=== PATIENT | male | born 1990 | race Caucasian/White ===

== ENCOUNTER 2018-02-08 13:17 | Inpatient (IN) | payer OTHER ==
[~2018-02-08] VITALS: Ht 160 cm; Wt 44.7 kg
[~2018-02-08 13:17] MED LIST: CARB1CAP10 PO; CARB400T3 PO; CHOL100010 PO; CLC100 PO; HYD10 PO; KPH250 PO; MRLP17 PO; hydrocortisone IM
[2018-02-08] MEDS ORDERED: ACETAMINOPHEN 650 MG SUPP PR STA (13:52)
[2018-02-08] MEDS ORDERED: SODIUM CHLORIDE 0.9% 500ML 500 ML IV STA (13:52)
[2018-02-08] MEDS ORDERED: SODIUM CHLORIDE 0.9% 1000ML 1,000 ML IV STA (13:52)
--- NOTE | 2018-02-08 14:13 | EMERGENCY ROOM VISIT NOTE ---
History Report prepared by Artie: Khushboo Beckham Under the Supervision of: Dr. Jade Garnett M.D. First contact with patient: 13:33 Chief Complaint: OTHER COMPLAINT Stated Complaint: BLEEDING INTERNAL History of Present Illness The patient is a 27 year old male who presents to the Emergency Room with complaints of worsening hematuria starting 2 weeks ago. Per grandmother, the patient has been passing clots through his catheter. She states that the patient has been complaining of pain in his lower abdomen, diaphoresis, and difficulty urinating. She notes that his Bui catheter was installed 2-3 weeks ago. The patient reported having a bowel movement, which he felt better after. The patient's grandmother denies the patient having a fever and vomiting. Per grandmother, the patient had a small bowel obstruction in the past. Source of History: family (grandmother) Onset: 2 weeks ago Position: other (Penis- urethra) Timing: worsening Modifying Factors (Relieving): defecation Associated Symptoms: + diaphoresis, + abdominal pain, + urinary symptoms, No fevers, No vomiting Review of Systems See HPI for pertinent positives & negatives. A total of 10 systems reviewed and were otherwise negative. Past Medical & Surgical Medical Problems: (1) BLINDNESS/LOW VISION (2) Cerebral palsy (3) History of exploratory laparotomy (4) Scoliosis deformity of spine (5) Seizure disorder Family History Patient reports no known family medical history. Social History Smoking Status: Never Smoker Alcohol Use: none Drug Use: none Marital Status: single Housing Status: lives with family Occupation Status: disabled Current/Historical Medications Scheduled Carbamazepine Extended Release (Tegretol Xr), 400 MG PO BID Carbamazepine Extended Release (Tegretol Xr), 100 MG PO BID Cephalexin Monohydrate (Keflex Susp), 10 ML PO TID Docusate Sodium (Docusate Sodium), 100 MG PO BID Glycopyrrolate (Glycopyrrolate), 1 MG PO BID Hydrocortisone (Cortef), 10 MG PO BID Linaclotide (Linzess), 145 MCG PO DAILY Sulfa/Trimethoprim (Bactrim Ds 800MG/160MG), 1 TAB PO BID Allergies Coded Allergies: No Known Allergies (Unverified , 02/08/18) Physical Exam Vital Signs Date Time Temp Pulse Resp B/P (MAP) Pulse Ox O2 Delivery O2 Flow Rate FiO2 02/08/18 17:23 86 02/08/18 17:19 96 Room Air 02/08/18 15:20 93 18 130/73 96 Room Air 02/08/18 13:45 37.4 02/08/18 13:24 94 20 145/84 94 Room Air Physical Exam Vital signs reviewed. General: Chronically ill-appearing, in no significant distress. HEENT: No scleral icterus, PERRLA, neck supple. Atraumatic. Cardiovascular: Regular rate and rhythm, no extra sounds. Pulmonary: Clear to auscultation bilaterally, normal work of breathing. Abdomen: Soft, nontender, nondistended, positive bowel sounds. Musculoskeletal: Atraumatic, no peripheral edema. : Indwelling Bui catheter draining dark blood tinged urine. Circumcised. Neurologic: Patient awake alert and seems to understand, answering some questions with a head nod. Muscular contractures and atrophy consistent with cerebral palsy. Skin: Warm to touch, dry, no rash Medical Decision & Procedures ER Provider Diagnostic Interpretation: Radiology results as stated below per my review and radiologist interpretation: (ERI/BLAD)RETROPERITON COMP HISTORY: Pain hematuria, LLQ pain, bui COMPARISON: None. FINDINGS: Right kidney: Maximum dimension 10.7 cm. No evidence for hydronephrosis. Normal corticomedullary differentiation and cortical thickness. Left kidney: Maximum dimension 9.2 cm. No evidence for hydronephrosis. Normal corticomedullary differentiation and cortical thickness. Bladder: Bui catheter in good position. IMPRESSION: Normal renal ultrasound. The above report was generated using voice recognition software. It may contain grammatical, syntax or spelling errors. Laboratory Results 02/08/18 14:21 Red Blood Count 4.76, Mean Corpuscular Volume 80.3, Mean Corpuscular Hemoglobin 27.1, Mean Corpuscular Hemoglobin Concent 33.8, Mean Platelet Volume 10.2, Neutrophils (%) (Auto) 70.9, Lymphocytes (%) (Auto) 15.8, Monocytes (%) (Auto) 12.6, Eosinophils (%) (Auto) 0.3, Basophils (%) (Auto) 0.1, Neutrophils # (Auto ) 5.05, Lymphocytes # (Auto) 1.13, Monocytes # (Auto) 0.90, Eosinophils # (Auto ) 0.02, Basophils # (Auto) 0.01 7/29/18 14:21 Test 02/08/18 13:50 02/08/18 14:21 02/08/18 17:02 Urine Color LEIF Urine Appearance CLOUDY (CLEAR) Urine pH 5.5 (4.5-7.5) Urine Specific [place] 1.026 (1.000-1.030) Urine Protein 2+ (NEG) Urine Glucose (UA) NEG (NEG) Urine Ketones NEG (NEG) Urine Occult Blood 3+ (NEG) Urine Nitrite POS (NEG) Urine Bilirubin NEG (NEG) Urine Urobilinogen NEG (NEG) Urine Leukocyte Esterase MODERATE (NEG) Urine WBC (Auto) >30 /hpf (0-5) Urine RBC (Auto) >30 /hpf (0-4) Urine Hyaline Casts (Auto) 5-10 /lpf (0-5) Urine Epithelial Cells (Auto) 0-5 /lpf (0-5) Urine Bacteria (Auto) 2+ (NEG) White Blood Count 7.13 K/uL (4.8-10.8) Red Blood Count 4.76 M/uL (4.7-6.1) Hemoglobin 12.9 g/dL (14.0-18.0) Hematocrit 38.2 % (42-52) Mean Corpuscular Volume 80.3 fL (80-100) Mean Corpuscular Hemoglobin 27.1 pg (25-34) Mean Corpuscular Hemoglobin Concent 33.8 g/dl (32-36) Platelet Count 267 K/uL (130-400) Mean Platelet Volume 10.2 fL (7.4-10.4) Neutrophils (%) (Auto) 70.9 % Lymphocytes (%) (Auto) 15.8 % Monocytes (%) (Auto) 12.6 % Eosinophils (%) (Auto) 0.3 % Basophils (%) (Auto) 0.1 % Neutrophils # (Auto) 5.05 K/uL (1.4-6.5) Lymphocytes # (Auto) 1.13 K/uL (1.2-3.4) Monocytes # (Auto) 0.90 K/uL (0.11-0.59) Eosinophils # (Auto) 0.02 K/uL (0-0.5) Basophils # (Auto) 0.01 K/uL (0-0.2) RDW Standard Deviation 41.7 fL (36.4-46.3) RDW Coefficient of Variation 14.5 % (11.5-14.5) Immature Granulocyte % (Auto) 0.3 % Immature Granulocyte # (Auto) 0.02 K/uL (0.00-0.02) Anion Gap 7.0 mmol/L (3-11) Est Creatinine Clear Calc Drug Dose 113.2 ml/min Estimated GFR () > 150.0 Estimated GFR (Non- 130.0 BUN/Creatinine Ratio 17.3 (10-20) Calcium Level 8.0 mg/dl (8.5-10.1) Total Bilirubin 0.2 mg/dl (0.2-1) Direct Bilirubin 0.1 mg/dl (0-0.2) Aspartate Amino Transf (AST/SGOT) 20 U/L (15-37) Alanine Aminotransferase (ALT/SGPT) 32 U/L (12-78) Alkaline Phosphatase 109 U/L (45-117) Total Protein 7.5 gm/dl (6.4-8.2) Albumin 3.6 gm/dl (3.4-5.0) Carbamazepine (Tegretol) Level 18.4 mcg/ml (4-12) Laboratory results per my review. Medications Administered Medications (Trade) Dose Ordered Sig/[place] Route Start Time Stop Time Status Last Admin Dose Admin Sodium Chloride 500 ml @ 999 mls/hr Q31M STAT IV 02/08/18 13:52 02/08/18 14:22 DC 02/08/18 14:29 999 MLS/HR Sodium Chloride 1,000 ml @ 150 mls/hr Q6H40M STAT IV 02/08/18 13:52 02/08/18 17:18 DC 02/08/18 15:29 150 MLS/HR Ceftriaxone Sodium (Rocephin Inj) 1 gm NOW STAT IV 02/08/18 14:50 02/08/18 14:58 DC 02/08/18 15:21 1 GM Acetaminophen (Tylenol Children'S Susp) 800 mg STK-MED ONCE .ROUTE 02/08/18 15:19 02/08/18 15:20 DC 02/08/18 15:23 650 MG ED Course 0139: Past medical records reviewed. The patient was evaluated in room C4. A complete history and physical examination was performed. 1407: I reviewed past records of the patient. There was a urine specimen done on 01/21/2018 that was positive and a urine culture done on 02/04/2018 that were both positive for E coli. 1622: I reviewed the patient's case with Dr. Ronda Blakely. He will evaluate the patient for further management. 1624: I reevaluated the patient. The patient's grandmother verbally agreed and understood the treatment plan. Medical Decision Differential diagnosis includes urinary tract infection, Bui catheter obstruction, kidney stone, bladder mass, hemorrhage, medication effect, urethral trauma, dehydration, kidney stone, obstruction. This patient was evaluated and appeared to be in no significant distress. IV access was obtained and laboratory work was drawn. The patient's Bui catheter was irrigated to clear without difficulty. Family states the catheter was replaced several days ago. He was started on Bactrim at that time. It appears that the patient still has a UA consistent with significant UTI. Patient is found to be hyponatremic to 127 with a carbamazepine level of 18.4. Ultrasound of the kidneys reveals no evidence of obstruction. Patient's primary caregiver is his mother who is out of town. He is with his aunt and grandmother. Given the findings of hyponatremia and toxic carbamazepine levels with a UTI, the patient will be evaluated by the hospitalist service for further management. Family is aware of the plan and agrees. Medication Reconcilliation Current Medication List: was personally reviewed by me Blood Pressure Screening Patient's blood pressure: Elevated blood pressure Referred to hospitalist. Consults Time Called: 1618 Consulting Physician: Dr. Ronda Blakely. Returned Call: 1622 I reviewed the patient's case with Dr. Ronda Blakely. He will evaluate the patient for further management. Impression Primary Impression: Carbamazepine toxicity Additional Impressions: Hyponatremia UTI (urinary tract infection) due to urinary indwelling catheter Scribe Attestation The scribe's documentation has been prepared under my direction and personally reviewed by me in its entirety. I confirm that the note above accurately reflects all work, treatment, procedures, and medical decision making performed by me. Departure Information Dispostion Being Evaluated By Hospitalist Prescriptions Cephalexin Monohydrate (KEFLEX SUSP) 250 Mg/5 Ml Susp 10 ML PO TID for 7 Days, #210 BTL Prov: Jade Garnett M.D. 02/08/18 Referrals Radha Bacon M.D. (PCP) Patient Instructions My [facility] Problem Qualifiers
[2018-02-08] MEDS ORDERED: DOCU100C31 PO (14:18)
[2018-02-08] MEDS ORDERED: LINA1CAP PO (14:18)
[2018-02-08] MEDS ORDERED: GLYC1TAB19 PO (14:18)
[2018-02-08] MEDS ORDERED: HYD10 PO (14:18)
[2018-02-08] MEDS ORDERED: SULF800T23 PO (14:20)
[2018-02-08 14:46] LABS: BASO % 0.1 %; BASO ABS # 0.01 K/uL (0-0.2); EOS % 0.3 %; EOS ABS # 0.02 K/uL (0-0.5); HEMATOCRIT 38.2 % (42-52); HEMOGLOBIN 12.9 g/dL (14.0-18.0); IG# 0.02 K/uL (0.00-0.02); LYMPH % 15.8 %; LYMPH ABS # 1.13 K/uL (1.2-3.4); MEAN CELL VOLUME 80.3 fL (80-100); MEAN CORPUSCULAR HEMOGLOBIN 27.1 pg (25-34); MEAN CORPUSCULAR HGB CONC 33.8 g/dl (32-36); MEAN PLATELET VOLUME 10.2 fL (7.4-10.4); MONO % 12.6 %; NEUT % 70.9 %; NEUT ABS # 5.05 K/uL (1.4-6.5); PLATELET COUNT 267 K/uL (130-400); RED CELL DISTRIBUTION WIDTH CV 14.5 % (11.5-14.5); RED CELL DISTRIBUTION WIDTH SD 41.7 fL (36.4-46.3); WHITE BLOOD COUNT 7.13 K/uL (4.8-10.8)
[2018-02-08] MEDS ORDERED: ACETAMINOPHEN SOLN 650MG/20.3 ML UDC PO STA (14:50)
[2018-02-08] MEDS ORDERED: CEFTRIAXONE SOD INJ 1 GM ADDVIAL IV STA (14:50)
[2018-02-08 15:10] LABS: ALBUMIN 3.6 gm/dl (3.4-5.0); ALKALINE PHOSPHATASE 109 U/L (45-117); ALT/SGPT 32 U/L (12-78); AST/SGOT 20 U/L (15-37); BLOOD UREA NITROGEN 12 mg/dl (7-18); CARBON DIOXIDE 23 mmol/L (21-32); CREATININE 0.68 mg/dl (0.60-1.40); GLUCOSE 91 mg/dl (70-99); POTASSIUM 3.9 mmol/L (3.5-5.1); SODIUM 127 mmol/L (136-145); TOTAL PROTEIN 7.5 gm/dl (6.4-8.2)
[2018-02-08] MEDS ORDERED: ACETAMINOPHEN SUSP 160 MG/5 ML UDC ONE (15:19)
--- NOTE | 2018-02-08 16:01 | DIAGNOSTIC IMAGING REPORT ---
(ERI/BLAD)RETROPERITON COMP HISTORY: Pain hematuria, LLQ pain, bui COMPARISON: None. FINDINGS: Right kidney: Maximum dimension 10.7 cm. No evidence for hydronephrosis. Normal corticomedullary differentiation and cortical thickness. Left kidney: Maximum dimension 9.2 cm. No evidence for hydronephrosis. Normal corticomedullary differentiation and cortical thickness. Bladder: Bui catheter in good position. IMPRESSION: Normal renal ultrasound. The above report was generated using voice recognition software. It may contain grammatical, syntax or spelling errors. Electronically signed by: Tawanda Perera M.D. 02/08/2018 4:00 PM Dictated Date/Time: 02/08/2018 3:59 PM
[2018-02-08] MEDS ORDERED: CEPH500C PO (16:03)
[2018-02-08] MEDS ORDERED: KFLS250100 PO (16:08)
[2018-02-08 17:19] VITALS: O2SAT 96; Ht 160 cm; Wt 44.7 kg
--- NOTE | 2018-02-08 17:24 | History and Physical ---
History & Physical Date & Time of Service: Feb 08, 2018 at 17:14 Chief Complaint: Bleeding Internal Primary Care Physician: Radha Bacon M.D. History of Present Illness Source: family, clinic records 27-year-old male with history of cerebral palsy, spastic quadriplegia, epilepsy , panhypopituitarism Presenting with lower abdominal pain. History obtained from patient's grandmother at the bedside as patient is nonverbal. Patient had a Bui catheter insertion recently as he was having retention and incontinence. Urine cultures from February 04, 2018 also showed E. coli, and is now on his Bactrim day #3. According to the grandmother,, patient was noted to have no abdominal pain earlier today, no nausea or vomiting, no fever chills, but is noted to have sweats at night. Occasional mild hematuria and blood clots also seen in his Bui catheter. He was then brought to the ER for evaluation. Labs drawn at the ER showed UA positive for UTI, elevated carbamazepine level of 18, hyponatremia of 127. Patient was given IV ceftriaxone, and start with IV normal saline. On exam, the patient is awake and alert, nonverbal, but able to make gestures, smiling, not in distress. When asked increasing pain, the patient shakes his head. No other symptoms according to the grandmother. Past Medical/Surgical History Medical Problems: (1) BLINDNESS/LOW VISION (2) Cerebral palsy (3) Dehydration (4) History of exploratory laparotomy (5) Hypopituitarism (6) Intestinal obstruction (7) Partial obstruction of small bowel (8) Scoliosis deformity of spine (9) Seizure disorder (10) small bowel obstruction Family History Patient reports no known family medical history. Social History Smoking Status: Never Smoker Drug Use: none Marital Status: single Housing status: lives with family Occupational Status: disabled Immunizations History of Influenza Vaccine: Yes Influenza Vaccine Date: Jun 04, 2013 History of Tetanus Vaccine?: UNK History of Pneumococcal: No History of Hepatitis B Vaccine: Unknown Allergies Coded Allergies: No Known Allergies (Unverified , 02/08/18) Home Medications Scheduled Carbamazepine Extended Release (Tegretol Xr), 400 MG PO BID Carbamazepine Extended Release (Tegretol Xr), 100 MG PO BID Cephalexin Monohydrate (Keflex Susp), 10 ML PO TID Docusate Sodium (Docusate Sodium), 100 MG PO BID Glycopyrrolate (Glycopyrrolate), 1 MG PO BID Hydrocortisone (Cortef), 10 MG PO BID Linaclotide (Linzess), 145 MCG PO DAILY Sulfa/Trimethoprim (Bactrim Ds 800MG/160MG), 1 TAB PO BID Review of Systems Constitutional- no fever; no weight loss Eyes- no acute visual changes ENT- no sinus drainage; no pharyngitis Pulmonary- no cough, no wheezing, no shortness of breath Cardiac- no chest pain, no palpitations, no orthopnea, no dependent edema GI-positive for constipation -positive as noted above Musculoskeletal- no arthralgias, no myalgias Derm- no rashes, no new skin lesions, no changing skin lesions Hematologic- no unusual bruising, no unusual bleeding Lymphatics- no adenopathy Endocrine- no polyuria or polydipsia; no heat or cold intolerance Neuro- no headaches, no focal neurologic symptoms Psych- no anxiety, no depression Physical Exam Vital Signs Date Time Temp Pulse Resp B/P (MAP) Pulse Ox O2 Delivery O2 Flow Rate FiO2 02/08/18 15:20 93 18 130/73 96 Room Air 02/08/18 13:45 37.4 02/08/18 13:24 94 20 145/84 94 Room Air General Appearance: no apparent distress, + thin Head: normocephalic, atraumatic Eyes: normal inspection, PERRL, EOMI, sclerae normal ENT: normal ENT inspection, hearing grossly normal, pharynx normal Neck: supple, no adenopathy, thyroid normal, no JVD, trachea midline Respiratory/Chest: chest non-tender, lungs clear, normal breath sounds, no respiratory distress, no accessory muscle use Cardiovascular: regular rate, rhythm, no edema, no JVD, no murmur, normal peripheral pulses Abdomen/GI: normal bowel sounds, non tender, soft Back: normal inspection, no CVA tenderness Extremities/Musculoskelatal: + pertinent finding (Positive atrophy of the legs with Flex posturing) Neurologic/Psych: line camera operator II-XII nml as tested, no motor/sensory deficits, alert, oriented x 3 Skin: normal color, warm/dry, no rash Lymphatic: no adenopathy Diagnostics Laboratory Results Results Past 24 Hours Test 02/08/18 13:50 02/08/18 14:21 02/08/18 17:02 Range/Units Urine Color LEIF Urine Appearance CLOUDY CLEAR Urine pH 5.5 4.5-7.5 Urine Specific [place] 1.026 1.000-1.030 Urine Protein 2+ NEG Urine Glucose (UA) NEG NEG Urine Ketones NEG NEG Urine Occult Blood 3+ NEG Urine Nitrite POS NEG Urine Bilirubin NEG NEG Urine Urobilinogen NEG NEG Urine Leukocyte Esterase MODERATE NEG Urine WBC (Auto) >30 0-5 /hpf Urine RBC (Auto) >30 0-4 /hpf Urine Hyaline Casts (Auto) 5-10 0-5 /lpf Urine Epithelial Cells (Auto) 0-5 0-5 /lpf Urine Bacteria (Auto) 2+ NEG White Blood Count 7.13 4.8-10.8 K/uL Red Blood Count 4.76 4.7-6.1 M/uL Hemoglobin 12.9 14.0-18.0 g/dL Hematocrit 38.2 42-52 % Mean Corpuscular Volume 80.3 80-100 fL Mean Corpuscular Hemoglobin 27.1 25-34 pg Mean Corpuscular Hemoglobin Concent 33.8 32-36 g/dl Platelet Count 267 130-400 K/uL Mean Platelet Volume 10.2 7.4-10.4 fL Neutrophils (%) (Auto) 70.9 % Lymphocytes (%) (Auto) 15.8 % Monocytes (%) (Auto) 12.6 % Eosinophils (%) (Auto) 0.3 % Basophils (%) (Auto) 0.1 % Neutrophils # (Auto) 5.05 1.4-6.5 K/uL Lymphocytes # (Auto) 1.13 1.2-3.4 K/uL Monocytes # (Auto) 0.90 0.11-0.59 K/uL Eosinophils # (Auto) 0.02 0-0.5 K/uL Basophils # (Auto) 0.01 0-0.2 K/uL RDW Standard Deviation 41.7 36.4-46.3 fL RDW Coefficient of Variation 14.5 11.5-14.5 % Immature Granulocyte % (Auto) 0.3 % Immature Granulocyte # (Auto) 0.02 0.00-0.02 K/uL Sodium Level 127 136-145 mmol/L Potassium Level 3.9 3.5-5.1 mmol/L Chloride Level 97 98-107 mmol/L Carbon Dioxide Level 23 21-32 mmol/L Anion Gap 7.0 3-11 mmol/L Blood Urea Nitrogen 12 7-18 mg/dl Creatinine 0.68 0.60-1.40 mg/dl Est Creatinine Clear Calc Drug Dose 113.2 ml/min Estimated GFR () > 150.0 Estimated GFR (Non- 130.0 BUN/Creatinine Ratio 17.3 10-20 Random Glucose 91 70-99 mg/dl Calcium Level 8.0 8.5-10.1 mg/dl Total Bilirubin 0.2 0.2-1 mg/dl Direct Bilirubin 0.1 0-0.2 mg/dl Aspartate Amino Transf (AST/SGOT) 20 15-37 U/L Alanine Aminotransferase (ALT/SGPT) 32 12-78 U/L Alkaline Phosphatase 109 45-117 U/L Total Protein 7.5 6.4-8.2 gm/dl Albumin 3.6 3.4-5.0 gm/dl Carbamazepine (Tegretol) Level 18.4 4-12 mcg/ml Microbiology Results 02/08/18 Urine Culture, Received Pending Diagnostic Radiology (ERI/BLAD)RETROPERITON COMP HISTORY: Pain hematuria, LLQ pain, bui COMPARISON: None. FINDINGS: Right kidney: Maximum dimension 10.7 cm. No evidence for hydronephrosis. Normal corticomedullary differentiation and cortical thickness. Left kidney: Maximum dimension 9.2 cm. No evidence for hydronephrosis. Normal corticomedullary differentiation and cortical thickness. Bladder: Bui catheter in good position. IMPRESSION: Normal renal ultrasound. The above report was generated using voice recognition software. It may contain grammatical, syntax or spelling errors. Electronically signed by: Tawanda Perera M.D. 02/08/2018 4:00 PM Impression Assessment and Plan 27-year-old male with history of cerebral palsy, spastic quadriplegia, epilepsy , panhypopituitarism Presenting with lower abdominal pain. LOWER ABDOMINAL PAIN Possible differentials: Secondary to UTI Continue ceftriaxone IV Secondary to Bui catheter We will consult urology Secondary to constipation versus colitis Obtain CT abdomen and pelvis HEMATURIA, in the setting of Bui catheter, E. coli UTI No active hematuria per inspection of the Bui catheter back We will continue to monitor HYPONATREMIA Possibly secondary to carbamazepine toxicity Patient appears to be euvolemic Obtain serum osmolality, urine sodium and osmolality Consult nephrology ELEVATED CARBAMAZEPINE LEVEL Hold carbamazepine Consult neurology CEREBRAL PALSY Mental status at baseline PANHYPOPITUITARISM Patient not septic Continue hydrocortisone p.o. 10 mg p.o. twice a day EPILEPSY Management of carbamazepine as noted above Neurology consulted DVT prophylaxis SCDs Avoiding anticoagulation due to hematuria episodes CODE STATUS Full code according to grandmother Disposition Anticipate discharge to home when medically stable Discussed the case at length with patient's grandmother and she is agreeable and comfortable with plan of care Resuscitation Status VTE Prophylaxis Will order VTE Prophylaxis: Yes Reason for no VTE drug order: Contraindicated
--- NOTE | 2018-02-08 18:04 | DIAGNOSTIC IMAGING REPORT ---
ABD/PELVIS NO IV OR ORAL CONT CT DOSE: 304.24 mGy.cm HISTORY: Pain lower abdominal pain TECHNIQUE: Multiaxial CT images of the abdomen and pelvis were performed without contrast. A dose lowering technique was utilized adhering to the principles of ALARA. COMPARISON STUDY: 06/28/2013 FINDINGS: Similar study is compared to the prior exam. Lines consistent with distal small bowel obstruction. Multiple mildly distended fluid-filled loops of small bowel. Colon shows no evidence for distention. There is a Sumner catheter within the bladder. No significant abdominal or pelvic free fluid within the limitations of an unenhanced exam. Unchanging postoperative stabilization procedure to the thoracolumbar spine. Lung bases remain clear. There is a small hiatal hernia. IMPRESSION: 1. Findings consistent with a mid to distal small bowel obstruction. 2. Distal small bowel is decompressed as is the colon. 3. Appearance is in general similar compared to the prior study although the degree of bowel distention is less prominent on the current exam. 4. As discussed previously, the possibility of adhesions is considered. The above report was generated using voice recognition software. It may contain grammatical, syntax or spelling errors. Electronically signed by: Tawanda Perera M.D. 02/08/2018 6:03 PM Dictated Date/Time: 02/08/2018 5:53 PM
[2018-02-08 18:08] VITALS: O2SAT 97
[2018-02-08 18:16] VITALS: BP 112/70; PULSE 90; TEMP 36.7; O2SAT 100
--- NOTE | 2018-02-08 18:48 | Progress Note ---
Progress Note Date of Service Feb 08, 2018. Progress Note Attending addendum CT abdomen pelvis reviewed: Mid to distal bowel obstruction Please patient n.p.o. and start D5 NSS Also start stress dose hydrocortisone IV General surgery consulted Serum osmolality low Monitor sodium D5 NS discussed the case with patient's mother at bedside At length She is agreeable and comfortable with the plan of care Anil LUCERO
[2018-02-08 19:52] VITALS: BP 130/73; PULSE 83; TEMP 36.8; O2SAT 98
--- NOTE | 2018-02-08 20:14 | Urology Consultation ---
History General Date of Service: Feb 08, 2018. Chief Complaint: hematuria Primary Care Physician: Radha Bacon M.D. Pt seen a urologist before?: Yes If yes, why?: urinary retention History of Present Illness I am asked by dr Reyes to evaluate and treat patient for hematuria. He is admitted with abd pain. He was found on lab testing to be hyponatremic and supra-therapeutic on his seizure medicine. Patient was diagnosed with urinary retention with overflow incontinence 3 weeks ago. he was started on clean intermittent catheterization by family at home 2-3 times per day. the mid week the family had difficulty getting the catheter int. We placed an indwelling Bui for the first time 3 days ago. Urine was cloudy at the time so urine was sent for culture. He was started in Bactrim for the e coli uti Friday evening. I have never seen hematuria in the patient but it is quite common in catheterized individuals. Imaging Imaging: CT, [facility] Laboratory Results Past 24 Hours Test 02/08/18 00:00 02/08/18 13:50 02/08/18 14:21 02/08/18 19:39 Range/Units Urine Osmolality 642 500-800 mOms/kg Urine Random Sodium 102 mEq/L Urine Color LEIF Urine Appearance CLOUDY CLEAR Urine pH 5.5 4.5-7.5 Urine Specific [employer] M[employer] 1.026 1.000-1.030 Urine Protein 2+ NEG Urine Glucose (UA) NEG NEG Urine Ketones NEG NEG Urine Occult Blood 3+ NEG Urine Nitrite POS NEG Urine Bilirubin NEG NEG Urine Urobilinogen NEG NEG Urine Leukocyte Esterase MODERATE NEG Urine WBC (Auto) >30 0-5 /hpf Urine RBC (Auto) >30 0-4 /hpf Urine Hyaline Casts (Auto) 5-10 0-5 /lpf Urine Epithelial Cells (Auto) 0-5 0-5 /lpf Urine Bacteria (Auto) 2+ NEG White Blood Count 7.13 4.8-10.8 K/uL Red Blood Count 4.76 4.7-6.1 M/uL Hemoglobin 12.9 14.0-18.0 g/dL Hematocrit 38.2 42-52 % Mean Corpuscular Volume 80.3 80-100 fL Mean Corpuscular Hemoglobin 27.1 25-34 pg Mean Corpuscular Hemoglobin Concent 33.8 32-36 g/dl Platelet Count 267 130-400 K/uL Mean Platelet Volume 10.2 7.4-10.4 fL Neutrophils (%) (Auto) 70.9 % Lymphocytes (%) (Auto) 15.8 % Monocytes (%) (Auto) 12.6 % Eosinophils (%) (Auto) 0.3 % Basophils (%) (Auto) 0.1 % Neutrophils # (Auto) 5.05 1.4-6.5 K/uL Lymphocytes # (Auto) 1.13 1.2-3.4 K/uL Monocytes # (Auto) 0.90 0.11-0.59 K/uL Eosinophils # (Auto) 0.02 0-0.5 K/uL Basophils # (Auto) 0.01 0-0.2 K/uL RDW Standard Deviation 41.7 36.4-46.3 fL RDW Coefficient of Variation 14.5 11.5-14.5 % Immature Granulocyte % (Auto) 0.3 % Immature Granulocyte # (Auto) 0.02 0.00-0.02 K/uL Sodium Level 127 131 136-145 mmol/L Potassium Level 3.9 3.5-5.1 mmol/L Chloride Level 97 98-107 mmol/L Carbon Dioxide Level 23 21-32 mmol/L Anion Gap 7.0 3-11 mmol/L Blood Urea Nitrogen 12 7-18 mg/dl Creatinine 0.68 0.60-1.40 mg/dl Est Creatinine Clear Calc Drug Dose 113.2 ml/min Estimated GFR () > 150.0 Estimated GFR (Non- 130.0 BUN/Creatinine Ratio 17.3 10-20 Random Glucose 91 70-99 mg/dl Osmolality 264 280-300 mOsm/kg Calcium Level 8.0 8.5-10.1 mg/dl Total Bilirubin 0.2 0.2-1 mg/dl Direct Bilirubin 0.1 0-0.2 mg/dl Aspartate Amino Transf (AST/SGOT) 20 15-37 U/L Alanine Aminotransferase (ALT/SGPT) 32 12-78 U/L Alkaline Phosphatase 109 45-117 U/L Total Protein 7.5 6.4-8.2 gm/dl Albumin 3.6 3.4-5.0 gm/dl Carbamazepine (Tegretol) Level 18.4 4-12 mcg/ml Microbiology Results 02/08/18 Urine Culture, Received Pending Labs were reviewed and are within normal limits unless listed below. Labs are available in the chart and at [facility] Problem List Medical Problems: (1) Carbamazepine toxicity Status: Acute (2) Hyponatremia Status: Acute (3) UTI (urinary tract infection) due to urinary indwelling catheter Status: Acute Past History other Family History Patient reports no known family medical history. Social History Hx Tobacco Use In Past Year?: No Smoking: non-smoker Alcohol: never Drug use: none Marital status: single Housing status: lives with family Occupation status: disabled Immunizations History of Influenza Vaccine: Yes Influenza Vaccine Date: Jun 04, 2013 History of Tetanus Vaccine?: UNK History of Pneumococcal: No History of Hepatitis B Vaccine: Unknown History of MDRO No Allergies Coded Allergies: No Known Allergies (Unverified , 02/08/18) Medications Home Medications: Home Meds and Scripts Medications Dose Route/Sig Max Daily Dose Days Date Category Dose Instructions Keflex Susp (Cephalexin Monohydrate) 250 Mg/5 Ml Susp 10 Ml PO TID 7 02/08/18 Rx Bactrim Ds 800MG/160MG (Trimethoprim/Sulfamethoxazole) Tab 1 Tab PO BID 02/08/18 Reported started 02/06 for 3 days Docusate Sodium 100 Mg Cap 100 Mg PO BID 7 02/08/18 Reported Glycopyrrolate 1 Mg Tab 1 Mg PO BID 02/08/18 Reported Linzess (Linaclotide) 145 Mcg Cap 145 Mcg PO DAILY 02/08/18 Reported Cortef (Hydrocortisone) 10 Mg Tab 10 Mg PO BID 02/08/18 Reported Tegretol Xr (Carbamazepine) 100 Mg Tabcr 100 Mg PO BID 06/28/13 Reported Tegretol Xr (Carbamazepine) 400 Mg Tabcr 400 Mg PO BID 12/17/10 Reported Inpatient Medications: Current Inpatient Medications Medications (Trade) Dose Ordered Sig/[place] Route Start Time Stop Time Status Last Admin Dose Admin Ceftriaxone Sodium 1 gm/ Dextrose 50 ml @ 100 mls/hr Q24H IV 02/09/18 15:00 02/19/18 14:59 UNV Glycopyrrolate (Robinul Tab) 1 mg BID PO 02/08/18 21:00 03/10/18 20:59 UNV Hydrocortisone (Cortef Tab) 10 mg BID PO 02/08/18 21:00 03/10/18 20:59 UNV Hydrocortisone Sodium Succinate 100 mg/Syringe 2 ml @ 4 mls/min NOW ONCE IV 02/08/18 18:45 02/08/18 18:46 UNV Hydrocortisone Sodium Succinate 50 mg/Syringe 1 ml @ 4 mls/min Q6H IV 02/09/18 01:00 03/11/18 00:59 UNV Potassium Chloride/Dextrose/ Sod Cl 1,000 ml @ 75 mls/hr [id number] IV 02/08/18 18:45 03/10/18 18:44 UNV Review of Systems Review of Systems Constitutional: No fever, No chills Endocrine: + tired/sluggish Gastrointestinal: + abdominal pain, + constipation Male : + urinary retention, + infections, + kidney stones Physical Exam Vital Signs: Vital Signs Past 12 Hours Date Time Temp Pulse Resp B/P (MAP) Pulse Ox O2 Delivery O2 Flow Rate FiO2 02/08/18 19:52 36.8 83 18 130/73 (92) 98 Room Air 02/08/18 18:16 36.7 90 16 112/70 (84) 100 Room Air 02/08/18 18:08 87 20 128/70 97 02/08/18 17:23 86 02/08/18 17:19 96 Room Air 02/08/18 15:20 93 18 130/73 96 Room Air 02/08/18 13:45 37.4 02/08/18 13:24 94 20 145/84 94 Room Air Physical Exam: General Appearance: WD/WN, no apparent distress, + thin Eyes: bilateral eyes normal inspection ENT: hearing grossly normal Respiratory/Chest: no respiratory distress, no accessory muscle use Genitourinary - Male: Penis: normal penis Urethral Meatus: normal urethral meatus, pertinent finding (bui in place draining yellow urine no blood noted) Neurologic/Psychiatric: alert Assessment & Plan Assessment & Plan intermittent hematuria imaging looks fine. labs do not show any concerning anemia he does have 2 small left non obstructing kidney stones seen on ct scan. no intervention recommended at this time the catheter and the uti make it likely the source is inflammatory in nature. Keep bui catheter in place.
[2018-02-08] MEDS: GLYCOPYRROLATE 1 MG TAB PO SCH (21:00)
[2018-02-08] MEDS ORDERED: HYDROCORTISONE IV 100 MG in SYRINGE 0 ML IV ONE (21:00)
[2018-02-08] MEDS ORDERED: D5NSS + 20MEQ KCL 1,000 ML IV SCH (21:00)
[2018-02-08] MEDS ORDERED: HYDROCORTISONE 10 MG TAB PO SCH (21:00)
[2018-02-08 23:41] VITALS: BP 115/71; PULSE 77; TEMP 36.6; O2SAT 96
[2018-02-09] MEDS: HYDROCORTISONE IV 50 MG in SYRINGE 0 ML IV SCH ×4 (02:02→19:36)
[2018-02-09 04:13] VITALS: BP 94/59; PULSE 74; TEMP 36.6; O2SAT 99
[2018-02-09 07:11] VITALS: BP 105/68; PULSE 81; TEMP 36.6; O2SAT 100
[2018-02-09] MEDS: GLYCOPYRROLATE 1 MG TAB PO SCH ×2 (08:40→19:35)
[2018-02-09 08:54] LABS: BASO % 0.3 %; BASO ABS # 0.01 K/uL (0-0.2); HEMATOCRIT 35.1 % (42-52); HEMOGLOBIN 11.7 g/dL (14.0-18.0); LYMPH % 17.9 %; LYMPH ABS # 0.59 K/uL (1.2-3.4); MEAN CELL VOLUME 81.1 fL (80-100); MEAN CORPUSCULAR HGB CONC 33.3 g/dl (32-36); MEAN PLATELET VOLUME 10.7 fL (7.4-10.4); MONO % 6.1 %; NEUT % 75.7 %; PLATELET COUNT 226 K/uL (130-400); RED CELL DISTRIBUTION WIDTH CV 14.6 % (11.5-14.5); RED CELL DISTRIBUTION WIDTH SD 43.2 fL (36.4-46.3)
[2018-02-09 09:02] LABS: BLOOD UREA NITROGEN 6 mg/dl (7-18); CALCIUM 8.3 mg/dl (8.5-10.1); CARBON DIOXIDE 27 mmol/L (21-32); CREATININE 0.66 mg/dl (0.60-1.40); GLUCOSE 123 mg/dl (70-99); POTASSIUM 3.8 mmol/L (3.5-5.1); SODIUM 141 mmol/L (136-145)
--- NOTE | 2018-02-09 09:14 | Progress Note ---
Medicine Progress Note Date & Time of Visit: Feb 09, 2018 at 09:05. Subjective seen resting in bed, alert, in good spirits mother at bedside states he looks improved had small BMs overnight, (+ )flatus, no nausea/vomiting mother reports patient had 2 seizures overnight- 10 sec, stares and moans- usually happens at home 3x a week patient gestures to answer questions- feels fine, no abdominal pain\ no other symptoms Objective Last 8 Hrs Date Time Temp Pulse Resp B/P (MAP) Pulse Ox O2 Delivery O2 Flow Rate FiO2 02/09/18 07:11 36.6 81 16 105/68 (80) 100 Room Air 02/09/18 04:13 36.6 74 16 94/59 (71) 99 Room Air Physical Exam: General-alert, not in distress, non verbal, gestures Eyes- anicteric ENT- oropharynx clear Neck- supple, no JVD Lungs- clear to auscultation Heart- regular rhythm; no murmur, normal rate Abdomen- normal bowel sounds, soft,non distended, nontender Extremities- no pretibial edema, no calf tenderness Neuro- alert, oriented x 3; no gross focal deficits Skin- warm & dry Laboratory Results: Last 24 Hours Test 02/08/18 13:50 02/08/18 14:21 02/08/18 19:39 02/09/18 00:08 Urine Color LEIF Urine Appearance CLOUDY Urine pH 5.5 Urine Specific [place] 1.026 Urine Protein 2+ Urine Glucose (UA) NEG Urine Ketones NEG Urine Occult Blood 3+ Urine Nitrite POS Urine Bilirubin NEG Urine Urobilinogen NEG Urine Leukocyte Esterase MODERATE Urine WBC (Auto) >30 /hpf Urine RBC (Auto) >30 /hpf Urine Hyaline Casts (Auto) 5-10 /lpf Urine Epithelial Cells (Auto) 0-5 /lpf Urine Bacteria (Auto) 2+ White Blood Count 7.13 K/uL Red Blood Count 4.76 M/uL Hemoglobin 12.9 g/dL Hematocrit 38.2 % Mean Corpuscular Volume 80.3 fL Mean Corpuscular Hemoglobin 27.1 pg Mean Corpuscular Hemoglobin Concent 33.8 g/dl Platelet Count 267 K/uL Mean Platelet Volume 10.2 fL Neutrophils (%) (Auto) 70.9 % Lymphocytes (%) (Auto) 15.8 % Monocytes (%) (Auto) 12.6 % Eosinophils (%) (Auto) 0.3 % Basophils (%) (Auto) 0.1 % Neutrophils # (Auto) 5.05 K/uL Lymphocytes # (Auto) 1.13 K/uL Monocytes # (Auto) 0.90 K/uL Eosinophils # (Auto) 0.02 K/uL Basophils # (Auto) 0.01 K/uL RDW Standard Deviation 41.7 fL RDW Coefficient of Variation 14.5 % Immature Granulocyte % (Auto) 0.3 % Immature Granulocyte # (Auto) 0.02 K/uL Sodium Level 127 mmol/L 131 mmol/L 132 mmol/L Potassium Level 3.9 mmol/L Chloride Level 97 mmol/L Carbon Dioxide Level 23 mmol/L Anion Gap 7.0 mmol/L Blood Urea Nitrogen 12 mg/dl Creatinine 0.68 mg/dl Est Creatinine Clear Calc Drug Dose 113.2 ml/min Estimated GFR () > 150.0 Estimated GFR (Non- 130.0 BUN/Creatinine Ratio 17.3 Random Glucose 91 mg/dl Osmolality 264 mOsm/kg Calcium Level 8.0 mg/dl Total Bilirubin 0.2 mg/dl Direct Bilirubin 0.1 mg/dl Aspartate Amino Transf (AST/SGOT) 20 U/L Alanine Aminotransferase (ALT/SGPT) 32 U/L Alkaline Phosphatase 109 U/L Total Protein 7.5 gm/dl Albumin 3.6 gm/dl Carbamazepine (Tegretol) Level 18.4 mcg/ml Test 02/09/18 04:03 02/09/18 07:48 White Blood Count 3.30 K/uL Red Blood Count 4.33 M/uL Hemoglobin 11.7 g/dL Hematocrit 35.1 % Mean Corpuscular Volume 81.1 fL Mean Corpuscular Hemoglobin 27.0 pg Mean Corpuscular Hemoglobin Concent 33.3 g/dl Platelet Count 226 K/uL Mean Platelet Volume 10.7 fL Neutrophils (%) (Auto) 75.7 % Lymphocytes (%) (Auto) 17.9 % Monocytes (%) (Auto) 6.1 % Eosinophils (%) (Auto) 0.0 % Basophils (%) (Auto) 0.3 % Neutrophils # (Auto) 2.50 K/uL Lymphocytes # (Auto) 0.59 K/uL Monocytes # (Auto) 0.20 K/uL Eosinophils # (Auto) 0.00 K/uL Basophils # (Auto) 0.01 K/uL RDW Standard Deviation 43.2 fL RDW Coefficient of Variation 14.6 % Immature Granulocyte % (Auto) 0.0 % Immature Granulocyte # (Auto) 0.00 K/uL Sodium Level 136 mmol/L 141 mmol/L Carbamazepine (Tegretol) Level 10.6 mcg/ml Potassium Level 3.8 mmol/L Chloride Level 108 mmol/L Carbon Dioxide Level 27 mmol/L Anion Gap 6.0 mmol/L Blood Urea Nitrogen 6 mg/dl Creatinine 0.66 mg/dl Est Creatinine Clear Calc Drug Dose 109.1 ml/min Estimated GFR () > 150.0 Estimated GFR (Non- 131.6 BUN/Creatinine Ratio 8.6 Random Glucose 123 mg/dl Calcium Level 8.3 mg/dl Date/Time Source Procedure Growth Status 02/08/18 13:50 Urine,Catheterized Urine Culture - Preliminary Gram Negative Bacilli Resulted Assessment & Plan 27-year-old male with history of cerebral palsy, spastic quadriplegia, epilepsy , panhypopituitarism Presenting with lower abdominal pain. LOWER ABDOMINAL PAIN secondary to: Small Bowel Obstruction on NPO Gen Surg Consulted seems to be resolving will discuss with Gen Surg re: advancing his diet Secondary to UTI Urine culture gram negative bacilli Continue ceftriaxone IV Secondary to Sumner catheter Urology consulted, maintain Sumner outpatient ff up HEMATURIA, in the setting of Sumner catheter, E. coli UTI, small L Kidney stones No active hematuria per inspection of the Sumner catheter back Urology consulted, maintain Sumner, treat UTI HYPONATREMIA Possibly secondary to carbamazepine toxicity Patient appears to be euvolemic serum Osm low Urine Osm and Na noted - Na improved to 126 to 141 ELEVATED CARBAMAZEPINE LEVEL Held carbamazepine, level normal this morning Neurology consulted CEREBRAL PALSY Mental status at baseline PANHYPOPITUITARISM on stress dose hydrocortisone 50mg IV q6h, then taper to 25mg q6h, then cortef 20mg TID, 20mg BID, then 02/05, then 04/22 EPILEPSY Management of carbamazepine as noted above Neurology consulted DVT prophylaxis SCDs Avoiding anticoagulation due to hematuria episodes re-evaluated CODE STATUS Full code according to grandmother Disposition Anticipate discharge to home when medically stable Discussed the case at length with patient's mother and she is agreeable and comfortable with plan of care Current Inpatient Medications: Current Inpatient Medications Medications (Trade) Dose Ordered Sig/[place] Route Start Time Stop Time Status Last Admin Dose Admin Ceftriaxone Sodium 1 gm/ Dextrose 50 ml @ 100 mls/hr Q24H IV 02/09/18 14:00 02/19/18 13:59 Glycopyrrolate (Robinul Tab) 1 mg BID PO 02/08/18 21:00 03/10/18 20:59 Hydrocortisone (Cortef Tab) 10 mg BID PO 02/08/18 21:00 03/10/18 20:59 Future Hold Hydrocortisone Sodium Succinate 50 mg/Syringe 1 ml @ 4 mls/min Q6H IV 02/09/18 02:00 03/11/18 01:59 02/09/18 08:40 4 MLS/MIN
--- NOTE | 2018-02-09 14:13 | Neurology Consultation ---
Neurology Consultation Date of Consultation: Feb 09, 2018. Attending Physician: Jeremy Reyes MD Primary Care Physician: Radha Bacon M.D. Reason for Consultation: elevated carbamazepine level /UTI History of Present Illness Source: patient, parent Yony is a 27 year old male with history of cerebral palsy, spastic quadriplegia, epilepsy, panhypopituitarism. He presented with lower abdominal pain. He had a Sumner catheter insertion recently as he was having retention and incontinence. Urine cultures from February 04, 2018 also showed E. coli, and was on bactrim for 3 days. And had some sweats at night occasional mild hematuria and blood clots also seen in his Sumner catheter. Labs were positive for UTI, elevated carbamazepine level of 18, hyponatremia of 127. His mom states he is anxious to start eating again but the bowel obstruction he is NPO. He is currently on IV fluids and ceftriaxone and stress steroids. She also states he has been having some right sided head turning and some verbal break through seizures. denies falls, N, V. SOB. Past Medical/Surgical History Medical Problems: (1) Carbamazepine toxicity Status: Acute (2) Hyponatremia Status: Acute (3) UTI (urinary tract infection) due to urinary indwelling catheter Status: Acute Social History Smoking Status: Never smoker Smokeless Tobacco Use: No Alcohol Use: none Drug Use: none Marital Status: single Housing Status: lives with family Occupation Status: disabled Allergies Coded Allergies: No Known Allergies (Unverified , 02/08/18) Current Inpatient Medications Current Inpatient Medications Medications (Trade) Dose Ordered Sig/[place] Route Start Time Stop Time Status Last Admin Dose Admin Ceftriaxone Sodium 1 gm/ Dextrose 50 ml @ 100 mls/hr Q24H IV 02/09/18 14:00 02/19/18 13:59 Glycopyrrolate (Robinul Tab) 1 mg BID PO 02/08/18 21:00 03/10/18 20:59 Hydrocortisone (Cortef Tab) 10 mg BID PO 02/08/18 21:00 03/10/18 20:59 Future Hold Hydrocortisone Sodium Succinate 50 mg/Syringe 1 ml @ 4 mls/min Q6H IV 02/09/18 02:00 03/11/18 01:59 02/09/18 08:40 4 MLS/MIN Dextrose 1,000 ml @ 200 mls/hr Q5H IV 02/09/18 13:45 03/11/18 13:44 Physical Exam Vital Signs (Past 24 Hrs): Date Time Temp Pulse Resp B/P (MAP) Pulse Ox O2 Delivery O2 Flow Rate FiO2 02/09/18 08:00 Room Air 02/09/18 07:11 36.6 81 16 105/68 (80) 100 Room Air 02/09/18 04:13 36.6 74 16 94/59 (71) 99 Room Air 02/08/18 23:41 36.6 77 15 115/71 (86) 96 Room Air 02/08/18 20:00 Room Air 02/08/18 19:52 36.8 83 18 130/73 (92) 98 Room Air 02/08/18 18:16 36.7 90 16 112/70 (84) 100 Room Air 02/08/18 18:08 87 20 128/70 97 02/08/18 17:23 86 02/08/18 17:19 96 Room Air 02/08/18 15:20 93 18 130/73 96 Room Air Physical Exam: Constitutional: appearance nourished sitting in wheelchair with contractured positioning of arms and legs Ears, Nose, Mouth and Throat: mucous membranes moist, no injection and skin normal, eyes normal Cardiovascular: normal S-1 and S-2 and regular rate and rhythm Respiratory: clear to auscultation (CTA) and no rales, rhonchi or wheeze Musculoskeletal: no peripheral edema and bilateral atrophy in muscles Skin: no stigmata of neurocutaneous disease noted and normal and intact Eyes: extraocular muscles intact (EOMI) and pupils equal, round and reactive to light (PERRL) NEUROLOGIC EXAMINATION: Mental status: Alert and interactive he answers yes no questions with head nod Reflexes: Deep tendon reflexes were symmetrical and graded 2/5. Coordination: touch hands with command Gait/Stance: Posture sitting in wheelchair Strength: hand restorative rehab aide biceps triceps 5/5 bilaterally lifts legs against gravity Laboratory Results Past 24 Hours: 02/09/18 04:03 Red Blood Count 4.33, Mean Corpuscular Volume 81.1, Mean Corpuscular Hemoglobin 27.0, Mean Corpuscular Hemoglobin Concent 33.3, Mean Platelet Volume 10.7, Neutrophils (%) (Auto) 75.7, Lymphocytes (%) (Auto) 17.9, Monocytes (%) (Auto) 6.1, Eosinophils (%) (Auto) 0.0, Basophils (%) (Auto) 0.3, Neutrophils # (Auto) 2.50, Lymphocytes # (Auto) 0.59, Monocytes # (Auto) 0.20, Eosinophils # (Auto) 0.00, Basophils # (Auto) 0.01 02/09/18 07:48 02/09/18 11:45 Test 02/08/18 14:21 02/09/18 04:03 02/09/18 07:48 Osmolality 264 mOsm/kg (280-300) Total Bilirubin 0.2 mg/dl (0.2-1) Direct Bilirubin 0.1 mg/dl (0-0.2) Aspartate Amino Transf (AST/SGOT) 20 U/L (15-37) Alanine Aminotransferase (ALT/SGPT) 32 U/L (12-78) Alkaline Phosphatase 109 U/L (45-117) Total Protein 7.5 gm/dl (6.4-8.2) Albumin 3.6 gm/dl (3.4-5.0) White Blood Count 3.30 K/uL (4.8-10.8) Red Blood Count 4.33 M/uL (4.7-6.1) Hemoglobin 11.7 g/dL (14.0-18.0) Hematocrit 35.1 % (42-52) Mean Corpuscular Volume 81.1 fL (80-100) Mean Corpuscular Hemoglobin 27.0 pg (25-34) Mean Corpuscular Hemoglobin Concent 33.3 g/dl (32-36) Platelet Count 226 K/uL (130-400) Mean Platelet Volume 10.7 fL (7.4-10.4) Neutrophils (%) (Auto) 75.7 % Lymphocytes (%) (Auto) 17.9 % Monocytes (%) (Auto) 6.1 % Eosinophils (%) (Auto) 0.0 % Basophils (%) (Auto) 0.3 % Neutrophils # (Auto) 2.50 K/uL (1.4-6.5) Lymphocytes # (Auto) 0.59 K/uL (1.2-3.4) Monocytes # (Auto) 0.20 K/uL (0.11-0.59) Eosinophils # (Auto) 0.00 K/uL (0-0.5) Basophils # (Auto) 0.01 K/uL (0-0.2) RDW Standard Deviation 43.2 fL (36.4-46.3) RDW Coefficient of Variation 14.6 % (11.5-14.5) Immature Granulocyte % (Auto) 0.0 % Immature Granulocyte # (Auto) 0.00 K/uL (0.00-0.02) Carbamazepine (Tegretol) Level 10.6 mcg/ml (4-12) Anion Gap 6.0 mmol/L (3-11) Est Creatinine Clear Calc Drug Dose 109.1 ml/min Estimated GFR () > 150.0 Estimated GFR (Non- 131.6 BUN/Creatinine Ratio 8.6 (10-20) Calcium Level 8.3 mg/dl (8.5-10.1) Imaging CT abdomen- . Findings consistent with a mid to distal small bowel obstruction. Distal small bowel is decompressed as is the colon. Appearance is in general similar compared to the prior study although the degree of bowel distention is less prominent on the current exam. As discussed previously, the possibility of adhesions is considered. renal US- Normal renal ultrasound. Impression 27 year old male cerebral palsy, spastic quadriplegia, epilepsy, panhypopituitarism with elevated tegretol level and UTI- bowel obstruction Plan 1. will restart tegretol ER 400 mg BID- however he is currently NPO 2. check level tomorrow 3. general surgery consulted regarding - bowel obstruction 4. NPO for now will need to start AED which is IV until able to take oral medications again 5. will continue to follow I have seen and discussed above patient with Dr Ry Prajapati, neurology I have seen this man and reviewed his history and exam and labs longstanding cp with mild mr and seizures on tegretol has uti on bactrim and was toxic on tegretol per lab but not clinically ( although this would be difficut to assess in light of his nystagmus and exraocular dysmotility and oscillations ) , has hyponatremia likely not entirely due to tegretol as level is coming up and is now npo due to small bowel obstruction so will convert to iv keppr and restart the tegretol at old dose level later once he is back to po status will follow Rosibel Prajapait MD
[2018-02-09] MEDS: DEXTROSE 5% 1000ML 1,000 ML IV SCH ×2 (14:20→20:45)
[2018-02-09] MEDS: CEFTRIAXONE SOD INJ 1 GM in DEXTROSE 5% ADD-VANTAGE 50ML 50 ML IV SCH (14:21)
--- NOTE | 2018-02-09 14:39 | Surgery Consultation ---
Consultation Date of Consultation: Feb 09, 2018. Attending Physician: Jeremy Reyes MD Reason for Consultation: Partial SBO, Left lower quadrant abdominal pain History of Present Illness Yony is a 27 year-old nonverbal male with past medical history of cerebral palsy and seizure disorder who presented to emergency room due to hematuria and blood clots seen in Sumner catheter drain with associated LLQ abdominal pain. He was recently diagnosed with urinary retention with overflow incontinence about 3-4 weeks ago and was having intermittent Sumner Catheters placed however he had indwelling Sumner catheter placed three days ago as an outpatient as well as diagnosed with UTI and started on Bactrim. Mother is at bedside who gave history as patient is nonverbal however communicates via nodding and sign language. She states for the past 3-4 weeks has had occasional abdominal pain and bloating. Bowel movements are not regular and has been trying different bowel regimens and phyiscal therapy to help regulate bowel movements. Last formed bowel movement was Friday. Mother denies of any fever, chills, nausea , vomiting, abdominal bloating, increasing abdominal pain. A CT Scan of abdomen and pelvis showed mid to distal small bowel dilatation consistent with small bowel obstruction that was similar to findings on CT scan in 2013 and the amount of dilatation on most recent CT scan was actually improved compared to previously. Labs showed no leukocytosis. Urine culture again positive for gram negative Bacilli. Since admission he has been placed on IV antibiotics, kept NPO. He has had two liquid bowel movements since admission and is passing flatus. No further complaining of abdominal pain. Past Medical/Surgical History Medical Problems: (1) Cerebral Palsy (2) Seizure disorder (3) Small bowel obstruction (4) BLINDNESS/LOW VISION (5) Dehydration (6) Hypopituitarism (7) Scoliosis deformity of spine Past Surgical History: Exploratory laparotomy Family History Patient reports no known family medical history. Social History Smoking Status: Never Smoker Smokeless Tobacco Use: No Alcohol Use: none Drug Use: none Marital Status: single Housing Status: lives with family Occupation Status: disabled Allergies Coded Allergies: No Known Allergies (Unverified , 02/08/18) Home Medications Scheduled Carbamazepine Extended Release (Tegretol Xr), 400 MG PO BID Carbamazepine Extended Release (Tegretol Xr), 100 MG PO BID Cephalexin Monohydrate (Keflex Susp), 10 ML PO TID Docusate Sodium (Docusate Sodium), 100 MG PO BID Glycopyrrolate (Glycopyrrolate), 1 MG PO BID Hydrocortisone (Cortef), 10 MG PO BID Linaclotide (Linzess), 145 MCG PO DAILY Sulfa/Trimethoprim (Bactrim Ds 800MG/160MG), 1 TAB PO BID Current Inpatient Medications Current Inpatient Medications Medications (Trade) Dose Ordered Sig/[place] Route Start Time Stop Time Status Last Admin Dose Admin Ceftriaxone Sodium 1 gm/ Dextrose 50 ml @ 100 mls/hr Q24H IV 02/09/18 14:00 02/19/18 13:59 02/09/18 14:21 100 MLS/HR Glycopyrrolate (Robinul Tab) 1 mg BID PO 02/08/18 21:00 03/10/18 20:59 Hydrocortisone (Cortef Tab) 10 mg BID PO 02/08/18 21:00 03/10/18 20:59 Future Hold Hydrocortisone Sodium Succinate 50 mg/Syringe 1 ml @ 4 mls/min Q6H IV 02/09/18 02:00 03/11/18 01:59 02/09/18 14:22 4 MLS/MIN Dextrose 1,000 ml @ 200 mls/hr Q5H IV 02/09/18 13:45 03/11/18 13:44 02/09/18 14:20 200 MLS/HR Review of Systems Constitutional: + sweats (at night), No fever, No chills Respiratory: No cough, No shortness of breath, No dyspnea at rest Cardiovascular: No chest pain Abdomen: + pain (LLQ), + constipation (chronic), No nausea, No vomiting, No diarrhea, No GI bleeding Genitourinary - Male: + hematuria, + urinary retention, + urinary incontinence Integumentary: No rash Physical Exam Date Time Temp Pulse Resp B/P (MAP) Pulse Ox O2 Delivery O2 Flow Rate FiO2 02/09/18 08:00 Room Air 02/09/18 07:11 36.6 81 16 105/68 (80) 100 Room Air 02/09/18 04:13 36.6 74 16 94/59 (71) 99 Room Air 02/08/18 23:41 36.6 77 15 115/71 (86) 96 Room Air 02/08/18 20:00 Room Air 02/08/18 19:52 36.8 83 18 130/73 (92) 98 Room Air 02/08/18 18:16 36.7 90 16 112/70 (84) 100 Room Air 02/08/18 18:08 87 20 128/70 97 02/08/18 17:23 86 02/08/18 17:19 96 Room Air 02/08/18 15:20 93 18 130/73 96 Room Air General Appearance: no apparent distress, + thin Head: normocephalic, atraumatic Eyes: sclerae normal Neck: trachea midline Respiratory/Chest: no respiratory distress, no accessory muscle use Abdomen/GI: normal bowel sounds, non tender, soft, no organomegaly, no pulsatile mass, + pertinent finding (laparotomy midline scar present) Neurologic/Psych: alert Skin: normal color, warm/dry, no rash Laboratory Results Last 24 Hours Test 02/08/18 19:39 02/09/18 00:08 02/09/18 04:03 02/09/18 07:48 Sodium Level 131 mmol/L 132 mmol/L 136 mmol/L 141 mmol/L White Blood Count 3.30 K/uL Red Blood Count 4.33 M/uL Hemoglobin 11.7 g/dL Hematocrit 35.1 % Mean Corpuscular Volume 81.1 fL Mean Corpuscular Hemoglobin 27.0 pg Mean Corpuscular Hemoglobin Concent 33.3 g/dl Platelet Count 226 K/uL Mean Platelet Volume 10.7 fL Neutrophils (%) (Auto) 75.7 % Lymphocytes (%) (Auto) 17.9 % Monocytes (%) (Auto) 6.1 % Eosinophils (%) (Auto) 0.0 % Basophils (%) (Auto) 0.3 % Neutrophils # (Auto) 2.50 K/uL Lymphocytes # (Auto) 0.59 K/uL Monocytes # (Auto) 0.20 K/uL Eosinophils # (Auto) 0.00 K/uL Basophils # (Auto) 0.01 K/uL RDW Standard Deviation 43.2 fL RDW Coefficient of Variation 14.6 % Immature Granulocyte % (Auto) 0.0 % Immature Granulocyte # (Auto) 0.00 K/uL Carbamazepine (Tegretol) Level 10.6 mcg/ml Potassium Level 3.8 mmol/L Chloride Level 108 mmol/L Carbon Dioxide Level 27 mmol/L Anion Gap 6.0 mmol/L Blood Urea Nitrogen 6 mg/dl Creatinine 0.66 mg/dl Est Creatinine Clear Calc Drug Dose 109.1 ml/min Estimated GFR () > 150.0 Estimated GFR (Non- 131.6 BUN/Creatinine Ratio 8.6 Random Glucose 123 mg/dl Calcium Level 8.3 mg/dl Test 02/09/18 11:45 Sodium Level 141 mmol/L Assessment & Plan 27 year-old male with cerebral palsy and history of partial small bowel obstruction presented to emergency room for hematuria and blood clots in Sumner catheter. Recently diagnosed with urinary retention and overflow incontinence. Positive UTI with gram negative bacilli. CT scan of abdomen and pelvis showing mid to distal small bowel dilatation consistent with partial small bowel obstruction similar to CT scan findings in 2013 and slightly less dilated. Postive bowel function since admission, no leukocytosis, and abdominal pain has resolved. Plan: No acute surgical intervention required at this time May advance diet to clear liquids and as tolerated Continue current medical management for UTI May need prison bowel regimen to keep stool soft and prevent further episodes of intermittent bloating and decreased bowel function (as per mother) Dr. Toribio has seen and examined pt, agrees with above.
--- NOTE | 2018-02-09 15:38 | NEPHROLOGY CONSULTATION ---
DATE OF CONSULTATION: 02/09/2018 REASON FOR CONSULT: Hyponatremia. HISTORY OF PRESENT ILLNESS: The patient is a 27-year-old male with history of cerebral palsy, spastic quadriplegia, epilepsy, panhypopituitarism, who presented to the hospital yesterday with lower abdominal pain and gross hematuria. History was obtained from the patient's mother at the bedside as the patient is nonverbal. The patient has had some issues with urinary retention and had Sumner catheter placed recently. He also had urinary infection with E. coli and was on Bactrim for 3 days. The patient started having abdominal pain with hematuria yesterday, but did not have any nausea, vomiting, fevers, chills or diarrhea. He was noted to have much more sweating at night than before. Labs drawn in the Emergency Department showed urinalysis positive for urinary tract infection, elevated carbamazepine level of 18, hyponatremia up to 127. Most recently, he had a blood work done as an outpatient on January 23 which showed a sodium of 135. The patient was given IV ceftriaxone and started with IV normal saline. Urine studies were done which showed very elevated urine osmolality of 642 and a urine sodium of 103. Serum sodium has improved, may be slightly too fast and is up to 141 in about 21 hours' time period. PAST MEDICAL AND SURGICAL HISTORY: Blindness, low vision, cerebral palsy, history of dehydration with hyponatremia, history of exploratory laparotomy, hypopituitarism with chronic hydrocortisone, intestinal partial obstruction or small bowel, scoliosis, seizure disorder on Tegretol. FAMILY HISTORY: No relevant family history of present smokes. SOCIAL HISTORY: Never smoked. No drugs. Single, lives with family. Disabled. IMMUNIZATION: None. ALLERGIES: No known drug allergies. HOME MEDICATIONS: List was reviewed in detail and includes carbamazepine, cephalexin, docusate, glycopyrrolate, hydrocortisone 10 mg twice daily, linaclotide 145 mcg daily, Bactrim which was started just few days ago, but has already completed the course. REVIEW OF SYSTEMS: Unable to obtain from the patient, but I did have a detailed questioning with the mother, and according to the mother, the patient had abdominal pain in the lower area as well as gross hematuria and increased sweating than usual, but denied any fever, chills or really any other symptoms. PHYSICAL EXAMINATION: GENERAL: A 26-year-old male who is very thin and cachectic. He is in a pleasant mood and was laughing and smiling quite well. HEAD: Normocephalic, atraumatic. EYES: Normal inspection. Normal conjunctiva. Mucous membrane is moist. NECK: Supple. No jugular venous distention. CHEST: Nontender. LUNGS: Clear, no respiratory distress. CARDIOVASCULAR: Regular rate and rhythm, no edema. No JVD, no murmur. ABDOMEN: Soft, nontender. BACK: No CVA tenderness. EXTREMITIES: Severe atrophy of the muscles. No lower extremity edema. SKIN: Normal color, no rash. Laboratory tests at the time of admission yesterday, he had a serum sodium of 127, chloride 97, BUN 12, creatinine 0.68. Serum osmolality was slightly low at 264. Urine osmolality was 642. Urine sodium 102. Hemoglobin this morning 11.7, WBC count 3.3, platelet count 226, most recent blood work from 7:00 this morning shows a serum sodium of 141, potassium 3.8, BUN 6, creatinine 0.66. ASSESSMENT AND PLAN: A 27-year-old male with known chronic spastic quadriplegia associated with cerebral palsy, epilepsy, panhypopituitarism, presented with lower abdominal pain with gross hematuria, most likely secondary to urinary tract infection. I have been consulted for hyponatremia. 1. Hyponatremia. The patient had borderline low serum sodium 2 weeks ago, but at this time, he did present with mild hyponatremia of 127. Based on the urine osmolality and urine sodium, it would appear he had SIADH; however, serum sodium improved really fast just with the use of normal saline. Serum sodium went up by 14 mEq in about 21 hours of time period, which is slightly higher than ideal. As a result, I would like to give him 1000 mL of D5 water to bring the serum sodium down a little bit. No further workup is needed for hyponatremia. His Tegretol level was high and could be associated with hyponatremia, but the differential diagnosis of hyponatremia in his case is very broad. But at the end, it really does not matter at this time as the serum sodium has improved just with the use of normal saline. 2. Urinary tract infection. This is being addressed by the primary team. MY
[2018-02-09 15:56] VITALS: BP 113/73; PULSE 81; TEMP 36.7; O2SAT 97
[2018-02-09 16:46] LABS: BLOOD UREA NITROGEN 8 mg/dl (7-18); CALCIUM 8.1 mg/dl (8.5-10.1); CARBON DIOXIDE 25 mmol/L (21-32); CREATININE 0.67 mg/dl (0.60-1.40); GLUCOSE 139 mg/dl (70-99); POTASSIUM 3.8 mmol/L (3.5-5.1); SODIUM 138 mmol/L (136-145)
[2018-02-09] MEDS: LEVETIRACETAM IV 500 MG in DEXTROSE 5% 100ML 100 ML IV SCH (16:58)
[2018-02-09 19:07] VITALS: BP 105/66; PULSE 80; TEMP 36.8; O2SAT 96
[2018-02-10 00:13] VITALS: BP 104/67; PULSE 75; TEMP 36.6; O2SAT 99
[2018-02-10] MEDS: DEXTROSE 5% 1000ML 1,000 ML IV SCH ×2 (01:40→06:17)
[2018-02-10] MEDS: HYDROCORTISONE IV 50 MG in SYRINGE 0 ML IV SCH ×2 (02:16→07:17)
[2018-02-10 03:46] VITALS: BP 92/60; PULSE 64; TEMP 36.7; O2SAT 99
[2018-02-10] MEDS: LEVETIRACETAM IV 500 MG in DEXTROSE 5% 100ML 100 ML IV SCH (03:53)
[2018-02-10 06:45] LABS: BASO % 0.2 %; BASO ABS # 0.01 K/uL (0-0.2); EOS % 0.2 %; EOS ABS # 0.01 K/uL (0-0.5); HEMATOCRIT 36.3 % (42-52); HEMOGLOBIN 12.1 g/dL (14.0-18.0); IG# 0.01 K/uL (0.00-0.02); LYMPH % 20.7 %; LYMPH ABS # 0.93 K/uL (1.2-3.4); MEAN CELL VOLUME 82.5 fL (80-100); MEAN CORPUSCULAR HEMOGLOBIN 27.5 pg (25-34); MEAN CORPUSCULAR HGB CONC 33.3 g/dl (32-36); MEAN PLATELET VOLUME 10.1 fL (7.4-10.4); MONO ABS # 0.45 K/uL (0.11-0.59); NEUT % 68.7 %; NEUT ABS # 3.09 K/uL (1.4-6.5); PLATELET COUNT 212 K/uL (130-400); RED CELL DISTRIBUTION WIDTH SD 45.3 fL (36.4-46.3)
[2018-02-10] MEDS: GLYCOPYRROLATE 1 MG TAB PO SCH ×2 (07:16→20:17)
[2018-02-10 07:19] LABS: BLOOD UREA NITROGEN 4 mg/dl (7-18); CALCIUM 8.3 mg/dl (8.5-10.1); CARBON DIOXIDE 27 mmol/L (21-32); CREATININE 0.56 mg/dl (0.60-1.40); GLUCOSE 141 mg/dl (70-99); POTASSIUM 3.5 mmol/L (3.5-5.1); SODIUM 141 mmol/L (136-145)
[2018-02-10 08:00] VITALS: BP 103/59; PULSE 86; TEMP 36.8; O2SAT 95
--- NOTE | 2018-02-10 08:32 | Surgery Progress Note ---
Surgery Progress Note Date of Service Feb 10, 2018. Subjective Post OP Day: HD # 2 mother at bedside patient nodding during questions and signing to his mother as communication no abdominal pain, no nausea or vomiting tolerated clear liquids passing flatus Objective Vital Signs: Date Time Temp Pulse Resp B/P (MAP) Pulse Ox O2 Delivery O2 Flow Rate FiO2 02/10/18 03:46 36.7 64 16 92/60 (71) 99 Room Air 02/10/18 00:13 36.6 75 16 104/67 (79) 99 Room Air 02/09/18 20:00 Room Air 02/09/18 19:07 36.8 80 16 105/66 (79) 96 Room Air 02/09/18 15:56 36.7 81 16 113/73 (86) 97 Room Air General Appearance: no apparent distress, + thin Head: normocephalic, atraumatic Neck: trachea midline Respiratory/Chest: no respiratory distress, no accessory muscle use Abdomen: normal bowel sounds (a few high pitched sounds), non tender, non distended, soft, no organomegaly, no pulsatile mass Laboratory Results: Results Past 24 Hours Test 02/09/18 11:45 02/09/18 15:59 02/10/18 06:18 Range/Units Sodium Level 141 138 141 136-145 mmol/L Potassium Level 3.8 3.5 3.5-5.1 mmol/L Chloride Level 106 108 98-107 mmol/L Carbon Dioxide Level 25 27 21-32 mmol/L Anion Gap 7.0 6.0 3-11 mmol/L Blood Urea Nitrogen 8 4 7-18 mg/dl Creatinine 0.67 0.56 0.60-1.40 mg/dl Est Creatinine Clear Calc Drug Dose 107.5 125.6 ml/min Estimated GFR () > 150.0 > 150.0 Estimated GFR (Non- 130.8 140.8 BUN/Creatinine Ratio 12.5 7.9 10-20 Random Glucose 139 141 70-99 mg/dl Calcium Level 8.1 8.3 8.5-10.1 mg/dl White Blood Count 4.50 4.8-10.8 K/uL Red Blood Count 4.40 4.7-6.1 M/uL Hemoglobin 12.1 14.0-18.0 g/dL Hematocrit 36.3 42-52 % Mean Corpuscular Volume 82.5 80-100 fL Mean Corpuscular Hemoglobin 27.5 25-34 pg Mean Corpuscular Hemoglobin Concent 33.3 32-36 g/dl Platelet Count 212 130-400 K/uL Mean Platelet Volume 10.1 7.4-10.4 fL Neutrophils (%) (Auto) 68.7 % Lymphocytes (%) (Auto) 20.7 % Monocytes (%) (Auto) 10.0 % Eosinophils (%) (Auto) 0.2 % Basophils (%) (Auto) 0.2 % Neutrophils # (Auto) 3.09 1.4-6.5 K/uL Lymphocytes # (Auto) 0.93 1.2-3.4 K/uL Monocytes # (Auto) 0.45 0.11-0.59 K/uL Eosinophils # (Auto) 0.01 0-0.5 K/uL Basophils # (Auto) 0.01 0-0.2 K/uL RDW Standard Deviation 45.3 36.4-46.3 fL RDW Coefficient of Variation 15.0 11.5-14.5 % Immature Granulocyte % (Auto) 0.2 % Immature Granulocyte # (Auto) 0.01 0.00-0.02 K/uL Carbamazepine (Tegretol) Level 2.9 4-12 mcg/ml Assessment & Plan Partial SBO-- resolving -vitals stable, afebrile, no leukocytosis - positive bowel movement (yesterday) and flatus - tolerating clear liquids Plan: No surgical intervention required Advance diet as tolerated with full liquids and so forth today Continue IV Zofran as needed for nausea limit narcotics if needed Our services signing off, please call with questions or concerns Discussed with Dr. Toribio who agrees with above
[2018-02-10 11:53] VITALS: BP 115/63; PULSE 65; TEMP 36.9; O2SAT 96
[2018-02-10] MEDS ORDERED: CARBAMAZEPINE 400 MG PO SCH (12:00)
[2018-02-10] MEDS ORDERED: CARBAMAZEPINE 100 MG PO SCH (12:00)
--- NOTE | 2018-02-10 12:20 | Progress Note ---
Medicine Progress Note Date & Time of Visit: Feb 10, 2018 at 12:11. Subjective Seen with her mother Stephy at the bedside Patient sitting up in his wheelchair, awake, alert, in good spirits, smiling According to her his mother, patient had recurrence of episodes of seizures similar to yesterday, about 4 episodes, lasting a few seconds After that, patient had generalized stiffening, with head extension and some shaking, lasted about 30 seconds, and patient fell asleep Patient awakened and is now back to baseline Tolerating diet, positive BM last night, no signs of abdominal pain, no nausea, no chills No other symptoms Objective Last 8 Hrs Date Time Temp Pulse Resp B/P (MAP) Pulse Ox O2 Delivery O2 Flow Rate FiO2 02/10/18 11:53 36.9 65 18 115/63 (80) 96 02/10/18 08:00 36.8 86 18 103/59 (74) 95 02/10/18 08:00 Room Air Physical Exam: General-alert, not in distress, non verbal, gestures Eyes- anicteric ENT- oropharynx clear, no signs of tongue biting Neck-no JVD Lungs- clear to auscultation bilaterally, no rales or wheezes Heart- regular rhythm; no murmur, normal rate Abdomen- normal bowel sounds, soft,non distended, nontender Extremities- no pretibial edema, no calf tenderness Neuro- alert; no gross focal deficits Skin- warm & dry Positive erythema around the neck, extending to anterior chest, abdomen and all of the back Laboratory Results: Last 24 Hours Test 02/09/18 15:59 02/10/18 06:18 Sodium Level 138 mmol/L 141 mmol/L Potassium Level 3.8 mmol/L 3.5 mmol/L Chloride Level 106 mmol/L 108 mmol/L Carbon Dioxide Level 25 mmol/L 27 mmol/L Anion Gap 7.0 mmol/L 6.0 mmol/L Blood Urea Nitrogen 8 mg/dl 4 mg/dl Creatinine 0.67 mg/dl 0.56 mg/dl Est Creatinine Clear Calc Drug Dose 107.5 ml/min 125.6 ml/min Estimated GFR () > 150.0 > 150.0 Estimated GFR (Non- 130.8 140.8 BUN/Creatinine Ratio 12.5 7.9 Random Glucose 139 mg/dl 141 mg/dl Calcium Level 8.1 mg/dl 8.3 mg/dl White Blood Count 4.50 K/uL Red Blood Count 4.40 M/uL Hemoglobin 12.1 g/dL Hematocrit 36.3 % Mean Corpuscular Volume 82.5 fL Mean Corpuscular Hemoglobin 27.5 pg Mean Corpuscular Hemoglobin Concent 33.3 g/dl Platelet Count 212 K/uL Mean Platelet Volume 10.1 fL Neutrophils (%) (Auto) 68.7 % Lymphocytes (%) (Auto) 20.7 % Monocytes (%) (Auto) 10.0 % Eosinophils (%) (Auto) 0.2 % Basophils (%) (Auto) 0.2 % Neutrophils # (Auto) 3.09 K/uL Lymphocytes # (Auto) 0.93 K/uL Monocytes # (Auto) 0.45 K/uL Eosinophils # (Auto) 0.01 K/uL Basophils # (Auto) 0.01 K/uL RDW Standard Deviation 45.3 fL RDW Coefficient of Variation 15.0 % Immature Granulocyte % (Auto) 0.2 % Immature Granulocyte # (Auto) 0.01 K/uL Carbamazepine (Tegretol) Level 2.9 mcg/ml Assessment & Plan 27-year-old male with history of cerebral palsy, spastic quadriplegia, epilepsy , panhypopituitarism Presenting with lower abdominal pain. LOWER ABDOMINAL PAIN secondary to: Partial Small Bowel Obstruction, resolved Was placed on n.p.o. Gen Surg Consulted Patient's abdominal pain resolved, and her bowel movements, nausea also resolved Diet advanced, tolerating well Secondary to UTI Urine culture E. coli resistant to Bactrim, ampicillin, ampicillin sulbactam Noted to have rash on the neck, chest, abdomen and back-according to his mother , this was observed when after the seizure Reassessed after about 10-15 minutes, the rash is already resolving At this time, doubt progression from ceftriaxone Patient clinically improving Continue ceftriaxone IV D3 Patient will will need at least 10 days of antibiotics Secondary to Sumner catheter Urology consulted, maintain Sumner outpatient ff up HEMATURIA, in the setting of Sumner catheter, E. coli UTI, small L Kidney stones No active hematuria per inspection of the Sumner catheter back Urology consulted, maintain Sumner, treat UTI -No recurrence of hematuria HYPONATREMIA Possibly secondary to carbamazepine toxicity Patient appears to be euvolemic serum Osm low Urine Osm and Na noted - Na improved to 126 to 141 -Placed on D5 water Sodium level stable at 141, IV fluids discontinued ELEVATED CARBAMAZEPINE LEVEL Held carbamazepine Neurology consulted IV Keppra given while n.p.o. carbamazepine level low today Note the patient is taking p.o., resume usual Tegretol 500 mg extended release twice daily CEREBRAL PALSY Mental status at baseline PANHYPOPITUITARISM on stress dose hydrocortisone 50mg IV q6h, then taper to 25mg q6h, then cortef 20mg TID, 20mg BID, then 20 mg in a.m. and 10 mg p.m., then resume usual 10 mg twice daily EPILEPSY Management of carbamazepine as noted above Neurology consulted Patient had few second episodes of his usual seizures this morning, followed by another one with head extension, generalized stiffening,-lasting about 30 seconds His mother states that he had this seizure last time he was off Tegretol about a year ago DC IV Keppra noted the patient has a p.o. diet, resume usual Tegretol extended release 500 mg twice daily DVT prophylaxis SCDs Avoiding anticoagulation due to hematuria episodes re-evaluate CODE STATUS Full code according to grandmother Disposition Anticipate discharge to home when medically stable Discussed the case at length with patient's mother and she is agreeable and comfortable with plan of care Current Inpatient Medications: Current Inpatient Medications Medications (Trade) Dose Ordered Sig/[place] Route Start Time Stop Time Status Last Admin Dose Admin Ceftriaxone Sodium 1 gm/ Dextrose 50 ml @ 100 mls/hr Q24H IV 02/09/18 14:00 02/19/18 13:59 02/09/18 14:21 100 MLS/HR Glycopyrrolate (Robinul Tab) 1 mg BID PO 02/08/18 21:00 03/10/18 20:59 Hydrocortisone (Cortef Tab) 10 mg BID PO 02/08/18 21:00 03/10/18 20:59 Future Hold Non-Formulary Medication (Carbamazepine Extended Release (Tegretol Xr)) 400 mg BID PO 02/10/18 12:00 03/12/18 11:59 UNV Hydrocortisone Sodium Succinate 25 mg/Syringe 0.5 ml @ 4 mls/min Q6H IV 02/10/18 13:00 03/12/18 12:59 Miscellaneous Information (Order Awaiting Action) 1 ea QS N/A 02/10/18 16:00 03/12/18 15:59
[2018-02-10] MEDS: CARBAMAZEPINE 100 MG TABCR PO SCH ×2 (13:15→20:21)
[2018-02-10] MEDS: CEFTRIAXONE SOD INJ 1 GM in DEXTROSE 5% ADD-VANTAGE 50ML 50 ML IV SCH (13:16)
[2018-02-10] MEDS: CARBAMAZEPINE 400 MG PO SCH ×2 (13:16→20:21)
[2018-02-10] MEDS: HYDROCORTISONE IV 25 MG in SYRINGE 0 ML IV SCH ×2 (13:16→20:16)
--- NOTE | 2018-02-10 14:08 | Neurology Progress Notes ---
Neurology Progress Note Date of Service Feb 10, 2018. Thomas Bhakta is a 27 year old male with history of cerebral palsy, spastic quadriplegia, epilepsy, panhypopituitarism. He presented with lower abdominal pain. He had a Sumner catheter insertion recently as he was having retention and incontinence. Urine cultures from February 04, 2018 also showed E. coli, and was on bactrim for 3 days. And had some sweats at night occasional mild hematuria and blood clots also seen in his Sumner catheter. Labs were positive for UTI, elevated carbamazepine level of 18, hyponatremia of 127. According to notes his bowel obstruction and belly pain have resolved and he had an advanced diet. Mom mentioned yesterday he had some right sided head turning and some verbal break through seizures. He is smiling when told he can eat again. denies ida, N, V. SOB. Objective Date Time Temp Pulse Resp B/P (MAP) Pulse Ox O2 Delivery O2 Flow Rate FiO2 02/10/18 11:53 36.9 65 18 115/63 (80) 96 02/10/18 08:00 36.8 86 18 103/59 (74) 95 02/10/18 08:00 Room Air 02/10/18 03:46 36.7 64 16 92/60 (71) 99 Room Air 02/10/18 00:13 36.6 75 16 104/67 (79) 99 Room Air 02/09/18 20:00 Room Air 02/09/18 19:07 36.8 80 16 105/66 (79) 96 Room Air 02/09/18 15:56 36.7 81 16 113/73 (86) 97 Room Air Last 24 Hours Test 02/09/18 15:59 02/10/18 06:18 Sodium Level 138 mmol/L 141 mmol/L Potassium Level 3.8 mmol/L 3.5 mmol/L Chloride Level 106 mmol/L 108 mmol/L Carbon Dioxide Level 25 mmol/L 27 mmol/L Anion Gap 7.0 mmol/L 6.0 mmol/L Blood Urea Nitrogen 8 mg/dl 4 mg/dl Creatinine 0.67 mg/dl 0.56 mg/dl Est Creatinine Clear Calc Drug Dose 107.5 ml/min 125.6 ml/min Estimated GFR () > 150.0 > 150.0 Estimated GFR (Non- 130.8 140.8 BUN/Creatinine Ratio 12.5 7.9 Random Glucose 139 mg/dl 141 mg/dl Calcium Level 8.1 mg/dl 8.3 mg/dl White Blood Count 4.50 K/uL Red Blood Count 4.40 M/uL Hemoglobin 12.1 g/dL Hematocrit 36.3 % Mean Corpuscular Volume 82.5 fL Mean Corpuscular Hemoglobin 27.5 pg Mean Corpuscular Hemoglobin Concent 33.3 g/dl Platelet Count 212 K/uL Mean Platelet Volume 10.1 fL Neutrophils (%) (Auto) 68.7 % Lymphocytes (%) (Auto) 20.7 % Monocytes (%) (Auto) 10.0 % Eosinophils (%) (Auto) 0.2 % Basophils (%) (Auto) 0.2 % Neutrophils # (Auto) 3.09 K/uL Lymphocytes # (Auto) 0.93 K/uL Monocytes # (Auto) 0.45 K/uL Eosinophils # (Auto) 0.01 K/uL Basophils # (Auto) 0.01 K/uL RDW Standard Deviation 45.3 fL RDW Coefficient of Variation 15.0 % Immature Granulocyte % (Auto) 0.2 % Immature Granulocyte # (Auto) 0.01 K/uL Carbamazepine (Tegretol) Level 2.9 mcg/ml Imaging: no new imaging Exam: Gen: alert interactive, follow commands, pupil oscillations, non focal gaze eye movements non focal lungs CTA CV RRR muscle: very spastic in arms and legs follow command hand squeeze push pull, hip flex bilaterally muscle atrophy bilaterally LE Current Inpatient Medications Medications (Trade) Dose Ordered Sig/[place] Route Start Time Stop Time Status Last Admin Dose Admin Ceftriaxone Sodium 1 gm/ Dextrose 50 ml @ 100 mls/hr Q24H IV 02/09/18 14:00 02/19/18 13:59 02/10/18 13:16 100 MLS/HR Glycopyrrolate (Robinul Tab) 1 mg BID PO 02/08/18 21:00 03/10/18 20:59 Hydrocortisone (Cortef Tab) 10 mg BID PO 02/08/18 21:00 03/10/18 20:59 Future Hold Hydrocortisone Sodium Succinate 25 mg/Syringe 0.5 ml @ 4 mls/min Q6H IV 02/10/18 13:00 03/12/18 12:59 02/10/18 13:16 4 MLS/MIN Carbamazepine (Tegretol-Xr) 400 mg BID PO 02/10/18 21:00 03/12/18 20:59 02/10/18 13:16 400 MG Carbamazepine (Tegretol-Xr) 100 mg BID PO 02/10/18 21:00 03/12/18 20:59 02/10/18 13:15 100 MG Impression 27 year old male cerebral palsy, spastic quadriplegia, epilepsy, panhypopituitarism with elevated tegretol level and UTI- bowel obstruction Plan 1. tegretol ER 500 mg BID restarted 2. check level 02/12/2018 and 02/13/2018 3. general surgery consulted regarding - bowel obstruction- now resolved 4. diet advanced ok to give orals 5. UTI - IV antibiotics- ceftriaxone continue 6. once medically stable will transfer back to home with in place aids 7. will continue to follow follow up with neurology 2-4 weeks after discharge from hospital, Dr Ry Prajapati , or Tiana Braxton PAC schedule I have seen and discussed above patient with Dr Ry Prajapati, neurology Patient seen and examined he is better and back on tegretol we will check level in about 48 hours on old dose and adjust back if needed we will check back tomorrow Ry Prajapati MD
[2018-02-10 15:59] VITALS: BP 122/68; PULSE 118; TEMP 36.7; O2SAT 98
--- NOTE | 2018-02-10 18:58 | Progress Note ---
Subjective Date of Service: Feb 10, 2018. Subjective Pt evaluation today including: conversation w/ patient, conversation w/ family , chart review, lab review Voiding: bui catheter in place urine still clear yellow. I have not seen any blood in urine the whole admission. He is eating and having BMs. Problem List Medical Problems: (1) Carbamazepine toxicity Status: Acute (2) Hyponatremia Status: Acute (3) UTI (urinary tract infection) due to urinary indwelling catheter Status: Acute Review of Systems Constitutional: No fever, No chills Respiratory: No cough Abdomen: No pain, No nausea, No constipation Objective Vital Signs Date Time Temp Pulse Resp B/P (MAP) Pulse Ox O2 Delivery O2 Flow Rate FiO2 02/10/18 15:59 36.7 118 16 122/68 (86) 98 Room Air 02/10/18 11:53 36.9 65 18 115/63 (80) 96 02/10/18 08:00 36.8 86 18 103/59 (74) 95 02/10/18 08:00 Room Air 02/10/18 03:46 36.7 64 16 92/60 (71) 99 Room Air 02/10/18 00:13 36.6 75 16 104/67 (79) 99 Room Air 02/09/18 20:00 Room Air 02/09/18 19:07 36.8 80 16 105/66 (79) 96 Room Air Physical Exam General Appearance: WD/WN, + thin Respiratory/Chest: no respiratory distress, no accessory muscle use Comments: bui draining clear yellow urine Laboratory Results Last 24 Hours Test 02/10/18 06:18 White Blood Count 4.50 K/uL Red Blood Count 4.40 M/uL Hemoglobin 12.1 g/dL Hematocrit 36.3 % Mean Corpuscular Volume 82.5 fL Mean Corpuscular Hemoglobin 27.5 pg Mean Corpuscular Hemoglobin Concent 33.3 g/dl Platelet Count 212 K/uL Mean Platelet Volume 10.1 fL Neutrophils (%) (Auto) 68.7 % Lymphocytes (%) (Auto) 20.7 % Monocytes (%) (Auto) 10.0 % Eosinophils (%) (Auto) 0.2 % Basophils (%) (Auto) 0.2 % Neutrophils # (Auto) 3.09 K/uL Lymphocytes # (Auto) 0.93 K/uL Monocytes # (Auto) 0.45 K/uL Eosinophils # (Auto) 0.01 K/uL Basophils # (Auto) 0.01 K/uL RDW Standard Deviation 45.3 fL RDW Coefficient of Variation 15.0 % Immature Granulocyte % (Auto) 0.2 % Immature Granulocyte # (Auto) 0.01 K/uL Sodium Level 141 mmol/L Potassium Level 3.5 mmol/L Chloride Level 108 mmol/L Carbon Dioxide Level 27 mmol/L Anion Gap 6.0 mmol/L Blood Urea Nitrogen 4 mg/dl Creatinine 0.56 mg/dl Est Creatinine Clear Calc Drug Dose 125.6 ml/min Estimated GFR () > 150.0 Estimated GFR (Non- 140.8 BUN/Creatinine Ratio 7.9 Random Glucose 141 mg/dl Calcium Level 8.3 mg/dl Carbamazepine (Tegretol) Level 2.9 mcg/ml Assessment and Plan urinary retention attempts at clean intermittent catheterization failed at home so he now has an indwelling bui catheter With an indwelling bui catheter he will have constant colonization of the urine with bacteria. We need to use antibiotics sparingly. The urine cultures from last week to the week already show a new resistance to bactrim after a mere 3 day course. I would limit any antibiotic courses to 3 days. I see no inflammation around the bladder on CT scan to suggest a cystitis. I think the hematuria which was brief was more likely from catheter being tugged with various patient transfers. I also do not see how the cystitis could be responsible for his partial bowel obstruction which was seen on the ct scan and has since resolved. Above explained to patient and mother who expresses frustration with different opinions given by different doctors. At his age I am most concerned about running out of antibiotics.
[2018-02-10 19:45] VITALS: BP 107/66; PULSE 87; TEMP 36.4; O2SAT 98
[2018-02-11 00:06] VITALS: BP 102/66; PULSE 89; TEMP 36.3; O2SAT 98
[2018-02-11] MEDS: HYDROCORTISONE IV 25 MG in SYRINGE 0 ML IV SCH ×3 (01:15→12:20)
[2018-02-11 04:16] VITALS: BP 98/61; PULSE 60; TEMP 36.6; O2SAT 98
[2018-02-11 06:10] LABS: BASO % 0.2 %; BASO ABS # 0.02 K/uL (0-0.2); EOS % 0.1 %; EOS ABS # 0.01 K/uL (0-0.5); HEMATOCRIT 37.1 % (42-52); HEMOGLOBIN 11.9 g/dL (14.0-18.0); IG# 0.02 K/uL (0.00-0.02); LYMPH % 16.9 %; LYMPH ABS # 1.37 K/uL (1.2-3.4); MEAN CELL VOLUME 83.4 fL (80-100); MEAN CORPUSCULAR HEMOGLOBIN 26.7 pg (25-34); MEAN CORPUSCULAR HGB CONC 32.1 g/dl (32-36); MEAN PLATELET VOLUME 10.2 fL (7.4-10.4); MONO % 13.2 %; MONO ABS # 1.07 K/uL (0.11-0.59); NEUT % 69.4 %; PLATELET COUNT 213 K/uL (130-400); RED CELL DISTRIBUTION WIDTH CV 15.2 % (11.5-14.5); RED CELL DISTRIBUTION WIDTH SD 46.4 fL (36.4-46.3); WHITE BLOOD COUNT 8.09 K/uL (4.8-10.8)
[2018-02-11] MEDS ORDERED: LACTATED RINGER'S 1000ML 1,000 ML IV ONE (06:15)
[2018-02-11 07:05] LABS: BLOOD UREA NITROGEN 10 mg/dl (7-18); CALCIUM 8.4 mg/dl (8.5-10.1); CARBON DIOXIDE 30 mmol/L (21-32); CREATININE 0.62 mg/dl (0.60-1.40); GLUCOSE 96 mg/dl (70-99); POTASSIUM 3.9 mmol/L (3.5-5.1); SODIUM 143 mmol/L (136-145)
[2018-02-11 08:11] VITALS: BP 101/63; PULSE 76; TEMP 36.8; O2SAT 97
[2018-02-11] MEDS: CARBAMAZEPINE 400 MG PO SCH (09:04)
[2018-02-11] MEDS: GLYCOPYRROLATE 1 MG TAB PO SCH (09:04)
[2018-02-11] MEDS: CARBAMAZEPINE 100 MG TABCR PO SCH (09:04)
--- NOTE | 2018-02-11 11:27 | Progress Note ---
Subjective Date of Service: Feb 11, 2018. Subjective Pt evaluation today including: conversation w/ patient, conversation w/ family , physical exam, chart review, lab review, review of studies, review of inpatient medication list Saw/examined the patient in room 211 Mother is at bedside She is concerned about the new plan to stop abx. after three days I explained the rationale behind the antibiotic discontinuation and she seems to understand She states that the patient is doing much better - he is much more alert/awake she prefers discharge home today if okay with specialists Problem List Medical Problems: (1) Carbamazepine toxicity Status: Acute (2) Hyponatremia Status: Acute (3) UTI (urinary tract infection) due to urinary indwelling catheter Status: Acute Medications Current Inpatient Medications Medications (Trade) Dose Ordered Sig/[place] Route Start Time Stop Time Status Last Admin Dose Admin Ceftriaxone Sodium 1 gm/ Dextrose 50 ml @ 100 mls/hr Q24H IV 02/09/18 14:00 02/19/18 13:59 02/10/18 13:16 100 MLS/HR Glycopyrrolate (Robinul Tab) 1 mg BID PO 02/08/18 21:00 03/10/18 20:59 02/11/18 09:04 1 MG Hydrocortisone (Cortef Tab) 10 mg BID PO 02/08/18 21:00 03/10/18 20:59 Future Hold Hydrocortisone Sodium Succinate 25 mg/Syringe 0.5 ml @ 4 mls/min Q6H IV 02/10/18 13:00 03/12/18 12:59 02/11/18 06:23 4 MLS/MIN Carbamazepine (Tegretol-Xr) 400 mg BID PO 02/10/18 21:00 03/12/18 20:59 02/11/18 09:04 400 MG Carbamazepine (Tegretol-Xr) 100 mg BID PO 02/10/18 21:00 03/12/18 20:59 02/11/18 09:04 100 MG Lactated Ringer's 1,000 ml @ 60 mls/hr [id number] ONCE IV 02/11/18 06:15 02/11/18 22:54 02/11/18 06:22 60 MLS/HR Objective Vital Signs Date Time Temp Pulse Resp B/P (MAP) Pulse Ox O2 Delivery O2 Flow Rate FiO2 02/11/18 08:11 36.8 76 16 101/63 (76) 97 8/1/18 08:00 Room Air 02/11/18 04:16 36.6 60 13 98/61 (73) 98 Room Air 02/11/18 00:06 36.3 89 13 102/66 (78) 98 Room Air 02/10/18 20:00 Room Air 02/10/18 19:45 36.4 87 18 107/66 (80) 98 Room Air 02/10/18 15:59 36.7 118 16 122/68 (86) 98 Room Air 02/10/18 11:53 36.9 65 18 115/63 (80) 96 Physical Exam General Appearance: no apparent distress Respiratory/Chest: chest non-tender, lungs clear, normal breath sounds, no respiratory distress, no accessory muscle use Cardiovascular: regular rate, rhythm, no edema, no murmur Extremities: + pertinent finding (spastic quadriplegia) Neurologic/Psychiatric: alert, + pertinent finding (nonverbal, cognitive dysfunction) Laboratory Results Last 24 Hours Test 02/11/18 05:37 White Blood Count 8.09 K/uL Red Blood Count 4.45 M/uL Hemoglobin 11.9 g/dL Hematocrit 37.1 % Mean Corpuscular Volume 83.4 fL Mean Corpuscular Hemoglobin 26.7 pg Mean Corpuscular Hemoglobin Concent 32.1 g/dl Platelet Count 213 K/uL Mean Platelet Volume 10.2 fL Neutrophils (%) (Auto) 69.4 % Lymphocytes (%) (Auto) 16.9 % Monocytes (%) (Auto) 13.2 % Eosinophils (%) (Auto) 0.1 % Basophils (%) (Auto) 0.2 % Neutrophils # (Auto) 5.60 K/uL Lymphocytes # (Auto) 1.37 K/uL Monocytes # (Auto) 1.07 K/uL Eosinophils # (Auto) 0.01 K/uL Basophils # (Auto) 0.02 K/uL RDW Standard Deviation 46.4 fL RDW Coefficient of Variation 15.2 % Immature Granulocyte % (Auto) 0.2 % Immature Granulocyte # (Auto) 0.02 K/uL Sodium Level 143 mmol/L Potassium Level 3.9 mmol/L Chloride Level 109 mmol/L Carbon Dioxide Level 30 mmol/L Anion Gap 4.0 mmol/L Blood Urea Nitrogen 10 mg/dl Creatinine 0.62 mg/dl Est Creatinine Clear Calc Drug Dose 112.2 ml/min Estimated GFR () > 150.0 Estimated GFR (Non- 135.0 BUN/Creatinine Ratio 15.6 Random Glucose 96 mg/dl Calcium Level 8.4 mg/dl Assessment and Plan This is a 27 year old male with a past medical history of cerebral palsy, spastic quadriplegia, panhypopituitarism on long-term steroids, hx. of seizure disorder/epilepsy, chronic urinary retention with recent indwelling catheter placement - presents with weakness, lower abdominal pain, hyponatremia, urinary tract infection Urinary Tract Infection in the setting of Chronic Indwelling Catheter - patient with chronic urinary retention; failed intermittent catheterization - now has a chronic indwelling catheter - was on Bactrim x3 days prior to arrival; now has resistance to Bactrim and PCN - as per urology, will be on Rocephin for 3 days and should not be on prolonged treatment to prevent resistance - last dose of Rocephin on 02/11 - replace catheter prior to discharge - outpatient urology follow-up - hematuria and other symptoms of UTI resolved Epilepsy Elevated Carbamazepine Level - initially had elevated carbamazepine levels, after being held the level is now subtherapeutic - appreciate neurology input - patient had been on IV Keppra while NPO, now back on home dose of Tegretol - will speak with neurology about when to check it next Panhypopituitarism - currently on a stress dose - will discharge on Cortef 20mg TID, then 20mg BID, then 20mg AM/10mg PM, and then 10mg BID Partial Small Bowel Obstruction - now resolved, tolerating diet well - will need bowel regimen as outpatient Hyponatremia - patient presented with Na of 127 - given IVFs and the Na is much improved - IVFs now discontinued Cerebral Palsy - at baseline Spastic Quadriplegia - wheelchair bound DVT ppx - SCDs FULL CODE
[2018-02-11] MEDS: CEFTRIAXONE SOD INJ 1 GM in DEXTROSE 5% ADD-VANTAGE 50ML 50 ML IV SCH (13:28)
--- NOTE | 2018-02-11 13:56 | Discharge Instructions ---
Discharge Instructions Date of Service Feb 11, 2018. Admission Reason for Admission: Hyponatremia Discharge Discharge Diagnosis / Problem: Hyponatremia (low sodium), UTI, Seizure Disorder Discharge Goals Goal(s): Decrease discomfort, Improve function, Diagnostic testing, Therapeutic intervention Activity Recommendations Activity Limitations: resume your previous activity . Instructions / Follow-Up Instructions / Follow-Up Please follow-up with Dr. Bacon on February 19 at 12:45PM * Will need blood work (CMP and Tegretol level) as an outpatient in one week * Outpatient urology follow-up for the UTI * Pt. is to take Cortef (hydrocortisone) 20mg three times a day on 02/12, take 20mg twice a day on 02/13, take 20mg in the morning and 10mg in the evening on 02/14 and then back to the home dose of 10mg twice daily * Please follow-up with neurology in 2-3 weeks as outpatient Current Hospital Diet Patient's current hospital diet: Regular Diet Discharge Diet Recommended Diet: Regular Diet Pending Studies Studies pending at discharge: no Medical Emergencies . Who to Call and When: Medical Emergencies: If at any time you feel your situation is an emergency, please call 911 immediately. . Non-Emergent Contact Non-Emergency issues call your: Primary Care Provider, Urologist . . "Provider Documentation" section prepared by Jessica Benito. .
[2018-02-11] MEDS ORDERED: CIPR-255 PO (13:58)
--- NOTE | 2018-02-11 14:14 | Neurology Progress Notes ---
Neurology Progress Note Date of Service Feb 11, 2018. Thomas Bhakta is a 27 year old male with history of cerebral palsy, spastic quadriplegia, epilepsy, panhypopituitarism. He presented with lower abdominal pain. He had a Sumner catheter insertion recently as he was having retention and incontinence. Urine cultures from February 04, 2018 also showed E. coli, and was on bactrim for 3 days. And had some sweats at night occasional mild hematuria and blood clots also seen in his Sumner catheter. Labs were positive for UTI, elevated carbamazepine level of 18, hyponatremia of 127. According to notes his bowel obstruction and belly pain have resolved and he had an advanced diet. Mom mentioned yesterday he had some right sided head turning and some verbal break through seizures. He is smiling when told he can eat again. His mom wants to take him home. discussed plan for levels in 1 week. lula prieto N, Flex. SOB. Objective Date Time Temp Pulse Resp B/P (MAP) Pulse Ox O2 Delivery O2 Flow Rate FiO2 02/11/18 08:11 36.8 76 16 101/63 (76) 97 02/11/18 08:00 Room Air 02/11/18 04:16 36.6 60 13 98/61 (73) 98 Room Air 02/11/18 00:06 36.3 89 13 102/66 (78) 98 Room Air 02/10/18 20:00 Room Air 02/10/18 19:45 36.4 87 18 107/66 (80) 98 Room Air 02/10/18 15:59 36.7 118 16 122/68 (86) 98 Room Air Last 24 Hours Test 02/11/18 05:37 02/11/18 12:17 White Blood Count 8.09 K/uL Red Blood Count 4.45 M/uL Hemoglobin 11.9 g/dL Hematocrit 37.1 % Mean Corpuscular Volume 83.4 fL Mean Corpuscular Hemoglobin 26.7 pg Mean Corpuscular Hemoglobin Concent 32.1 g/dl Platelet Count 213 K/uL Mean Platelet Volume 10.2 fL Neutrophils (%) (Auto) 69.4 % Lymphocytes (%) (Auto) 16.9 % Monocytes (%) (Auto) 13.2 % Eosinophils (%) (Auto) 0.1 % Basophils (%) (Auto) 0.2 % Neutrophils # (Auto) 5.60 K/uL Lymphocytes # (Auto) 1.37 K/uL Monocytes # (Auto) 1.07 K/uL Eosinophils # (Auto) 0.01 K/uL Basophils # (Auto) 0.02 K/uL RDW Standard Deviation 46.4 fL RDW Coefficient of Variation 15.2 % Immature Granulocyte % (Auto) 0.2 % Immature Granulocyte # (Auto) 0.02 K/uL Sodium Level 143 mmol/L Potassium Level 3.9 mmol/L Chloride Level 109 mmol/L Carbon Dioxide Level 30 mmol/L Anion Gap 4.0 mmol/L Blood Urea Nitrogen 10 mg/dl Creatinine 0.62 mg/dl Est Creatinine Clear Calc Drug Dose 112.2 ml/min Estimated GFR () > 150.0 Estimated GFR (Non- 135.0 BUN/Creatinine Ratio 15.6 Random Glucose 96 mg/dl Calcium Level 8.4 mg/dl Carbamazepine (Tegretol) Level 11.1 mcg/ml Imaging: no new imaging Exam: Gen: alert NAD smiling and cooperating with mom to get ready for discharge eyes no focal moving UE spontaneously and with command Current Inpatient Medications Medications (Trade) Dose Ordered Sig/[place] Route Start Time Stop Time Status Last Admin Dose Admin Ceftriaxone Sodium 1 gm/ Dextrose 50 ml @ 100 mls/hr Q24H IV 02/09/18 14:00 02/19/18 13:59 02/11/18 13:28 100 MLS/HR Glycopyrrolate (Robinul Tab) 1 mg BID PO 02/08/18 21:00 03/10/18 20:59 02/11/18 09:04 1 MG Hydrocortisone (Cortef Tab) 10 mg BID PO 02/08/18 21:00 03/10/18 20:59 Future Hold Hydrocortisone Sodium Succinate 25 mg/Syringe 0.5 ml @ 4 mls/min Q6H IV 02/10/18 13:00 03/12/18 12:59 02/11/18 12:20 4 MLS/MIN Carbamazepine (Tegretol-Xr) 400 mg BID PO 02/10/18 21:00 03/12/18 20:59 02/11/18 09:04 400 MG Carbamazepine (Tegretol-Xr) 100 mg BID PO 02/10/18 21:00 03/12/18 20:59 02/11/18 09:04 100 MG Lactated Ringer's 1,000 ml @ 60 mls/hr [id number] ONCE IV 02/11/18 06:15 02/11/18 22:54 02/11/18 06:22 60 MLS/HR Impression 27 year old male cerebral palsy, spastic quadriplegia, epilepsy, panhypopituitarism with elevated tegretol level and UTI- bowel obstruction Plan 1. tegretol ER 500 mg BID restarted 2. checked level prior to discharge 11..1- discussed with mom concern for toxic level as level came up so quickly -she voices understanding 3. general surgery consulted regarding - bowel obstruction- now resolved 4. diet advanced ok to give orals 5. UTI - treated 6. once medically stable will transfer back to home with in place aids 7. CMP and tegretol level in 1 week follow up with neurology 2-4 weeks after discharge from hospital, Dr Ry Prajapati , or Tiana Braxton PAC schedule I discussed above patient with Dr Ry Prajapati, neurology ' Reviewed and discussed with Tiana Braxton PAC I agree with the above recommendations Ry Prajapati MD
--- NOTE | 2018-02-11 14:48 | Discharge Summary ---
Discharge Summary Date of Service Feb 11, 2018. Discharge Summary Admission Date: Feb 08, 2018 at 16:37 Discharge Date: Feb 11, 2018 Discharge Disposition: Home Principal Diagnosis: Urinary Tract Infection in the setting of Chronic Indwelling Catheter Epilepsy Elevated Carbamazepine Level Panhypopituitarism Partial Small Bowel Obstruction Hyponatremia Cerebral Palsy - at baseline Spastic Quadriplegia - wheelchair bound Medication Reconciliation New Medications: Ciprofloxacin Hcl (Cipro) 500 Mg Tab 500 MG PO BID PRN for Change in mental status for 3 Days, #6 TAB Continued Medications: Carbamazepine Extended Release (Tegretol Xr) 400 Mg Tabcr 400 MG PO BID Carbamazepine Extended Release (Tegretol Xr) 100 Mg Tabcr 100 MG PO BID, TAB Docusate Sodium (Docusate Sodium) 100 Mg Cap 100 MG PO BID for 7 Days, #14 CAP Glycopyrrolate (Glycopyrrolate) 1 Mg Tab 1 MG PO BID Hydrocortisone (Cortef) 10 Mg Tab 10 MG PO BID Linaclotide (Linzess) 145 Mcg Cap 145 MCG PO DAILY Discontinued Medications: Cephalexin Monohydrate (Keflex Susp) 250 Mg/5 Ml Susp 10 ML PO TID for 7 Days, #210 BTL Sulfa/Trimethoprim (Bactrim Ds 800MG/160MG) Tab 1 TAB PO BID, #6 TAB started 02/06 for 3 days Admission Information HPI (per Admitting provider): 27-year-old male with history of cerebral palsy, spastic quadriplegia, epilepsy , panhypopituitarism Presenting with lower abdominal pain. History obtained from patient's grandmother at the bedside as patient is nonverbal. Patient had a Sumner catheter insertion recently as he was having retention and incontinence. Urine cultures from February 04, 2018 also showed E. coli, and is now on his Bactrim day #3. According to the grandmother,, patient was noted to have no abdominal pain earlier today, no nausea or vomiting, no fever chills, but is noted to have sweats at night. Occasional mild hematuria and blood clots also seen in his Sumner catheter. He was then brought to the ER for evaluation. Labs drawn at the ER showed UA positive for UTI, elevated carbamazepine level of 18, hyponatremia of 127. Patient was given IV ceftriaxone, and start with IV normal saline. On exam, the patient is awake and alert, nonverbal, but able to make gestures, smiling, not in distress. When asked increasing pain, the patient shakes his head. No other symptoms according to the grandmother. Physical Exam (per Admitting): General Appearance: no apparent distress, + thin Head: normocephalic, atraumatic Eyes: normal inspection, PERRL, EOMI, sclerae normal ENT: normal ENT inspection, hearing grossly normal, pharynx normal Neck: supple, no adenopathy, thyroid normal, no JVD, trachea midline Respiratory/Chest: chest non-tender, lungs clear, normal breath sounds, no respiratory distress, no accessory muscle use Cardiovascular: regular rate, rhythm, no edema, no JVD, no murmur, normal peripheral pulses Abdomen/GI: normal bowel sounds, non tender, soft Back: normal inspection, no CVA tenderness Extremities/Musculoskelatal: + pertinent finding (Positive atrophy of the legs with Flex posturing) Neurologic/Psych: loss prevention auditor II-XII nml as tested, no motor/sensory deficits, alert , oriented x 3 Skin: normal color, warm/dry, no rash Lymphatic: no adenopathy Hospital Course This is a 27 year old male with a past medical history of cerebral palsy, spastic quadriplegia, panhypopituitarism on long-term steroids, hx. of seizure disorder/epilepsy, chronic urinary retention with recent indwelling catheter placement - presents with weakness, lower abdominal pain, hyponatremia, urinary tract infection Urinary Tract Infection in the setting of Chronic Indwelling Catheter - patient with chronic urinary retention; failed intermittent catheterization - now has a chronic indwelling catheter - was on Bactrim x3 days prior to arrival; now has resistance to Bactrim and PCN - as per urology, will be on Rocephin for 3 days and should not be on prolonged treatment to prevent resistance - last dose of Rocephin on 02/11 - replace catheter prior to discharge - outpatient urology follow-up - hematuria and other symptoms of UTI resolved Epilepsy Elevated Carbamazepine Level - initially had elevated carbamazepine levels, after being held the level is now subtherapeutic - appreciate neurology input - patient had been on IV Keppra while NPO, now back on home dose of Tegretol - will speak with neurology about when to check it next Panhypopituitarism - currently on a stress dose - will discharge on Cortef 20mg TID, then 20mg BID, then 20mg AM/10mg PM, and then 10mg BID Partial Small Bowel Obstruction - now resolved, tolerating diet well - will need bowel regimen as outpatient Hyponatremia - patient presented with Na of 127 - given IVFs and the Na is much improved - IVFs now discontinued Cerebral Palsy - at baseline Spastic Quadriplegia - wheelchair bound DVT ppx - SCDs FULL CODE Total time spent on discharge = 45 minutes This includes examination of the patient, discharge planning, medication reconciliation, and communication with other providers. Discharge Instructions Please follow-up with Dr. Bacon on February 19 at 12:45PM * Will need blood work (CMP and Tegretol level) as an outpatient in one week * Outpatient urology follow-up for the UTI * Pt. is to take Cortef (hydrocortisone) 20mg three times a day on 02/12, take 20mg twice a day on 02/13, take 20mg in the morning and 10mg in the evening on 02/14 and then back to the home dose of 10mg twice daily * Please follow-up with neurology in 2-3 weeks as outpatient
[2018-02-11 15:03] VITALS: BP 101/63; PULSE 76; TEMP 36.8; O2SAT 97
== END 2018-02-11 15:15 | disposition home or self-care (01) | DRG 698 ==
LOC: C.EDB 13:18 → C.2E 16:37 → ENRESERV 17:15
PROVIDERS: ADMIT Internal Medicine; ATTEND Family Medicine
DX: T83.511A Infection and inflammatory reaction due to indwelling urethral catheter, initial encounter (principal); G80.0 Spastic quadriplegic cerebral palsy; E87.1 Hypo-osmolality and hyponatremia; E23.0 Hypopituitarism; K56.600 Partial intestinal obstruction, unspecified as to cause; T42.1X5A Adverse effect of iminostilbenes, initial encounter; R33.9 Retention of urine, unspecified; B96.20 Unspecified Escherichia coli [E. coli] as the cause of diseases classified elsewhere; G40.909 Epilepsy, unspecified, not intractable, without status epilepticus; Z79.899 Other long term (current) drug therapy; Y84.6 Urinary catheterization as the cause of abnormal reaction of the patient, or of later complication, without mention of misadventure at the time of the procedure; Y73.1 Therapeutic (nonsurgical) and rehabilitative gastroenterology and urology devices associated with adverse incidents; Z99.3 Dependence on wheelchair